=== PATIENT | male | born 1945 | race Caucasian/White ===

== ENCOUNTER 2016-12-31 12:03 | Inpatient (IN) ==
[2016-12-31 14:51] LABS: Basophils % 0.4 %; Eosinophils % 0.4 %; Hematocrit 50.1 % (37.5-50.1); Hemoglobin 16.4 g/dL (12.9-16.9); Immature Granulocytes % 0.4 % (0-4); Lymphocytes # 1.8 K/mcL (0.6-4.6); Lymphocytes % 16.9 %; Mean Corpuscular HGB Conc 32.7 g/dL (31.6-35.5); Mean Corpuscular Hemoglobin 29.7 pg (28.0-33.3); Mean Corpuscular Volume 90.8 fL (83.0-100.0); Mean Platelet Volume 9.7 fL (9.4-12.4); Monocytes % 9.9 %; Neutrophils # 7.5 K/mcL (1.6-8.9); Platelet Count 166 K/mcL (140-400); Red Blood Count 5.52 M/mcL (4.19-5.50); Red Cell Distribution Width 14.6 % (11.5-14.5)
[2016-12-31 14:58] LABS: Calcium 10.1 mg/dL (8.6-10.8); Potassium 4.4 mEq/L (3.5-4.5)
[2016-12-31] MEDS ORDERED: 0.9 % Sodium Chloride 500 ML IVC ONE (15:24)
[2016-12-31] MEDS ORDERED: *HR* HYDROmorphone (PF) 1 MG/ML SYRINGE IVP ONE (15:26)
--- NOTE | 2016-12-31 15:30 | Emergency Department Note ---
Disposition Clinical Impression: Calculus of kidney UTI (urinary tract infection) Qualifiers: Urinary tract infection type: site unspecified Hematuria presence: with hematuria Qualified Code(s): N39.0 - Urinary tract infection, site not specified Disposition: Admitted As Inpatient Condition: Good Referrals: Rey Quigley DO [Primary Care Provider] - General Adult HPI - General Chief complaint: ED Abdominal Pain Stated complaint: UTI/Kidney stone Time Seen by Provider: 12/31/16 15:07 Source: patient Limitations: no limitations Nursing Notes Reviewed: Yes Vital Signs Reviewed: Yes - History of Present Illness HPI Narrative: Patient was diagnosed over the weekend with a kidney stone as well as a UTI while he was out of town. He states the pain is getting worse. He is reporting blood in his urine. He does have a history of previous stone that had to be surgically removed. He reports right-sided flank pain that radiates around into his groin. He denies any nausea or vomiting. He denies any diarrhea. Pain Scale: 8 - Related Data Home Medications Medication Instructions Recorded Confirmed Aspirin Enteric Coated [Aspirin EC] 81 mg PO DAILY 12/31/16 12/31/16 Carbidopa/Levodopa [Sinemet 1 each PO TID 12/31/16 12/31/16 10] Cholecalciferol (D-3) [Vitamin D] 5,000 unit PO DAILY 12/31/16 12/31/16 Ciprofloxacin [Cipro] 500 mg PO BID 12/31/16 12/31/16 Doxycycline Monohydrate [Mondoxyne 50 mg PO DAILY 12/31/16 12/31/16 Nl] Escitalopram [Lexapro] 20 mg PO DAILY 12/31/16 12/31/16 Gabapentin [Neurontin] 800 mg PO HS 12/31/16 12/31/16 Losartan [Cozaar] 25 mg PO DAILY 12/31/16 12/31/16 Mycophenolate Mofetil [Cellcept] 1,000 mg PO BID 12/31/16 12/31/16 Olopatadine HCl [Pataday] 1 drop OP BID 12/31/16 12/31/16 Oxycodone HCl/Acetaminophen 1 each PO Q6H PRN 12/31/16 12/31/16 [Percocet 5-325 mg Tablet] Pravastatin Sodium [Pravachol] 20 mg PO HS 12/31/16 12/31/16 Pyridostigmine Br [Mestinon] 60 mg PO TID 12/31/16 12/31/16 Sitagliptin Phos/Metformin HCl 1 each PO BID 12/31/16 12/31/16 [Janumet 50-1,000 mg Tablet] Tamsulosin [Flomax] 0.4 mg PO DAILY 12/31/16 12/31/16 Trospium Chloride 20 mg PO BID 12/31/16 12/31/16 Allergies Allergy/AdvReac Type Severity Reaction Status Date / Time Amoxicillin AdvReac Itching Verified 12/31/16 12:14 Hydromorphone [From Dilaudid] AdvReac See Verified 12/31/16 12:14 Comments ketorolac [From Toradol] AdvReac See Verified 12/31/16 12:14 Comments Review of Systems: Patient reports subjective fevers. He is also reporting right-sided flank pain that radiates down into his groin. He states this began over the weekend. He was seen at an outlying facility for this. He is diagnosed with a kidney stone and urinary tract infection. He reports a decrease in frequency of his urination. He also reports a dark blood during urination. He denies any shortness of breath or chest pain. Denies any nausea vomiting or diarrhea. He denies any swelling to his extremities. All systems ED: reviewed and negative except as stated. Past Medical History - Past Medical History Medical history: Reports: arthritis, cancer, diabetes, hyperlipidemia, hypertension, kidney stones Psychiatric history: Reports: no psych history - Social History Smoking Status: Never smoker Smokeless Tobacco Status: No Alcohol use: Reports: none Drug use: Reports: none Physical Exam - General Limitations: no limitations General appearance: alert, in no apparent distress - Head Head exam: atraumatic, normocephalic, normal inspection - Eye Eye exam: Present: normal appearance, PERRL, EOMI. Absent: scleral icterus - ENT ENT exam: normal exam, normal oropharynx, mucous membranes moist - Neck Neck exam: Present: normal inspection, full ROM, trachea midline. Absent: tenderness, meningismus, lymphadenopathy - Chest Chest inspection: Present: normal inspection, symmetric chest wall rise. Absent : tenderness - Respiratory Respiratory exam: Present: normal lung sounds bilaterally. Absent: respiratory distress, wheezes - Cardiovascular Cardiovascular exam: Present: regular rate, normal rhythm, normal heart sounds - Abdominal Exam Abdominal exam: Present: soft, Non-Tender, normal bowel sounds - Extremities Exam Extremities exam: Present: normal inspection, full ROM, normal capillary refill. Absent: tenderness, pedal edema - Back Exam Back exam: Present: normal inspection, full ROM, CVA tenderness (R) - Neurological Exam Neurological exam: Present: alert, oriented X3 - Psychiatric Psychiatric exam: Present: normal affect, normal mood - Skin Skin exam: Present: warm, dry, intact, normal color. Absent: rash, cyanosis, diaphoresis, erythema Course Course Narrative: Obese male patient presenting to emergency department complaining of right flank pain. He states the pain started in his back and now radiating around to his abdomen. He was seen for this over the weekend at an outlying facility in [place]. He was diagnosed with a kidney stone and urinary tract infection. Placed on Cipro and Percocet. As well as Flomax. He states that his pain has increased. He is having subjective fevers at home. He does have a history of myasthenia gravis. He is expressing that he does frequently get urinary tract infections because his bladder does not empty completely however he states that now he is having a bloody discharge and that is not urinating as frequently as normal. Patient states he has also had a kidney stone previously. He states that he did have to have surgery to have this removed. On exam he does not appear in any distress resting in bed. His lung sounds are clear heart tones are normal and abdomen is soft and nontender on exam. He does have right CVA tenderness. He has no signs of edema to his extremities. Patient states that while he was in [place] he did receive 2 different doses of morphine and then ended up having to take Percocet as well for pain relief which is did not help. I discussed his possible Dilaudid allergy with him. He states that he was given amoxicillin Dilaudid as well as Toradol at the SAME time and developed some itching. He is agreeable to try just Dilaudid while he is here. We will also give him a small amount of fluid. We will recheck his urine and rescan his abdomen. - Reevaluation(s) Reevaluation #1: Patient ambulating throughout the room without assistance. He states he is still in some pain however he is refusing any extra pain medication at this time. He does have a obstructing stone in his right ureter. Patient has leukocyte esterase positive in his urine there are no nitrates. He does have a 5-15 count WBCs in his urine. This was called to us by lab. He has been on Cipro for several days. With the UTI and obstructing stone we will contact urology and admit him to the hospital for IV antibiotics. Patient is agreeable with this plan. Time: 17:41 - Consultations Consultation #1: Dr Rosenthal and is requesting that we admit the patient to the hospitalist and is agreeable to IV antibiotic use. He states that he will see the patient tomorrow. Time: 17:47 Vital Signs Temperature 97.8 F 12/31/16 12:07 Pulse Rate 111 12/31/16 12:07 Respiratory Rate 16 12/31/16 12:07 Blood Pressure 115/67 12/31/16 12:07 O2 Sat by Pulse Oximetry 92 12/31/16 12:07 Temperature 97.8 F 12/31/16 12:07 Pulse Rate 111 12/31/16 12:07 Respiratory Rate 16 12/31/16 18:52 Blood Pressure 138/80 12/31/16 18:52 O2 Sat by Pulse Oximetry 92 12/31/16 12:07 Oxygen Delivery Oxygen Delivery Room Air Medical Decision Making - Lab Data Result diagrams: 12/31/16 14:23 12/31/16 14:23 Lab Results 12/31/16 12/31/16 12/31/16 Range/Units 14:23 14:23 16:25 WBC 10.5 (4.3-11.1) K/mcL RBC 5.52 H (4.19-5.50) M/mcL Hgb 16.4 (12.9-16.9) g/dL Hct 50.1 (37.5-50.1) % MCV 90.8 (83.0-100.0) fL MCH 29.7 (28.0-33.3) pg MCHC 32.7 (31.6-35.5) g/dL RDW 14.6 H (11.5-14.5) % Plt Count 166 (140-400) K/mcL MPV 9.7 (9.4-12.4) fL Immature Gran % 0.4 (0-4) % Seg Neutrophils % 72.0 % Lymphocytes % 16.9 % Monocytes % 9.9 % Eosinophils % 0.4 % Basophils % 0.4 % Neutrophils # 7.5 (1.6-8.9) K/mcL Lymphocytes # 1.8 (0.6-4.6) K/mcL Monocytes # 1.0 (0.0-1.3) K/mcL Eosinophils # 0.0 (0.0-0.6) K/mcL Basophils # 0.0 (0.0-0.2) K/mcL Sodium 136 (136-145) mEq/L Potassium 4.4 (3.5-4.5) mEq/L Chloride 102 (98-109) mEq/L Carbon Dioxide 25 (19-29) mEq/L BUN 32 H (8-26) mg/dL Creatinine 1.62 H (0.72-1.25) mg/dL Est GFR ( Amer) 51 L (> 60) Est GFR (Non-Af Amer) 42 L (> 60) BUN/Creatinine Ratio 20 (6-26) Glucose 194 H (70-99) mg/dL Calculated Osmolality 294 (280-300) Calcium 10.1 (8.6-10.8) mg/dL Ur Specimen Adequacy See below A Urine Color Brown (Yellow) Urine Clarity Cloudy A (Clear) Urine pH 5.5 (5.0-8.0) pH Units Ur Specific [place] 1.025 (1.010-1.025) Urine Protein 30 H (Neg-Trace) mg/dL Urine Glucose (UA) Normal (Normal) mg/dL Urine Ketones Negative (Negative) mg/dL Urine Blood Large H (Negative) Urine Nitrite Negative (Negative) Urine Bilirubin Negative (Negative) Urine Urobilinogen Normal (Normal) mg/dL Ur Leukocyte Esterase Large H (Negative) Ur Culture Indicated? YES A (NO) Attestation Statement - Attestation Attestation: I, Oscar Ramirez, examined this patient and my medical decision-making was reviewed with the DISABILITY COUNSELOR/PA/Advanced Practice Nurse/Resident Physician. I agree with the documented findings, disposition and treatment plan as described except to the extent set forth below. 71-year-old male presents with concerns of right flank pain. Patient states he was diagnosed with a kidney stone and urinary tract infection within the past 2 weeks at a outside facility in [place]. Patient was given ciprofloxacin and Percocet for treatment at home. He states he has not improved and has progressively become worse. He reports significant amount of hematuria. Repeat CT of the abdomen and pelvis reveals a 4.4 mm stone in the right ureter. Urinalysis shows possible urinary tract infection consistent with infected stone. Patient will be admitted for IV antibiotics and further care and evaluation. Patient was comfortable with this plan. The resident spoke with the urologist who agreed with this plan. Patient will be admitted to the hospitalist.
[2016-12-31 16:50] LABS: Bilirubin,Urine Negative (Negative); Blood,Urine Large (Negative); Clarity,Urine Cloudy (Clear); Color,Urine Brown (Yellow); Glucose,Urine (UA) Normal (Normal); Ketones,Urine Negative (Negative); Leukocyte Esterase,Urine Large (Negative); Nitrite,Urine Negative (Negative); PH,Urine 5.5 pH Units (5.0-8.0); Protein,Urine 30 mg/dL (Neg-Trace); Specific Gravity,Urine 1.025 (1.010-1.025); Urobilinogen,Urine Normal (Normal)
--- NOTE | 2016-12-31 18:46 | Urology - Consult Note ---
Date of Encounter: 12/31/16 Time of Encounter: 18:44 - Assessment and Plan (1) Calculus of kidney Current Visit: Yes Status: Acute Assessment and plan: 71-year-old man presents with a history of right flank pain. His CT scan was reviewed which showed a 4 mm proximal right ureteral stone. He will be admitted for pain control. I recommend proceeding with a right ureteroscopy, laser lithotripsy, and stent placement. He was informed of the risks of the procedure including but not limited to bleeding, infection, injury to other structures, need for further procedures, stent irritation, incomplete fragmentation, ureteral perforation, need for nephrostomy tube, need for open repair, risks unforeseen, and the risk of anesthesia. He is willing to proceed. Urology CN:HPI Consult date: 12/31/16 Reason for consult Urology: Other (Right flank pain) Requesting physician: Marley Ibrahim History of present illness: 71-year-old man presents with a history of right flank pain. He was seen at an outside hospital and was diagnosed with a right proximal ureteral stone. He was given pain medication and wished to try to pass a stone. His pain got worse. He presented to [facility]. A repeat CT scan showed a 4 mm stone within the right proximal ureter. There is evidence of hydronephrosis. The pain is sharp and radiates to his groin. The medication has helped, but the oral pain medication was not adequate. He has a history of nephrolithiasis. He has previously had shockwave lithotripsy. Past Med Surg Social Fam HX - Past Medical History Medical history: arthritis, cancer, diabetes, hyperlipidemia, hypertension, kidney stones Psychiatric history: no psych history - Social History Smoking Status: Never smoker Smokeless Tobacco Status: No Alcohol use: none Drug use: none Medications and Allergies Aspirin Enteric Coated [Aspirin EC] 81 mg PO DAILY 12/31/16 [History] Carbidopa/Levodopa 10/100 [Sinemet 10/100] 1 each PO TID 12/31/16 [History] Cholecalciferol (D-3) [Vitamin D] 5,000 unit PO DAILY 12/31/16 [History] Ciprofloxacin [Cipro] 500 mg PO BID 12/31/16 [History] Doxycycline Monohydrate [Mondoxyne Nl] 50 mg PO DAILY 12/31/16 [History] Escitalopram [Lexapro] 20 mg PO DAILY 12/31/16 [History] Gabapentin [Neurontin] 800 mg PO HS 12/31/16 [History] Losartan [Cozaar] 25 mg PO DAILY 12/31/16 [History] Mycophenolate Mofetil [Cellcept] 1,000 mg PO BID 12/31/16 [History] Olopatadine HCl [Pataday] 1 drop OP BID 12/31/16 [History] Oxycodone HCl/Acetaminophen [Percocet 5-325 mg Tablet] 1 each PO Q6H PRN [History] Pravastatin Sodium [Pravachol] 20 mg PO HS 12/31/16 [History] Pyridostigmine Br [Mestinon] 60 mg PO TID 12/31/16 [History] Sitagliptin Phos/Metformin HCl [Janumet 50-1,000 mg Tablet] 1 each PO BID [History] Tamsulosin [Flomax] 0.4 mg PO DAILY 12/31/16 [History] Trospium Chloride 20 mg PO BID 12/31/16 [History] Allergies Amoxicillin Adverse Reaction (Verified 12/31/16 12:14) Itching Hydromorphone [From Dilaudid] Adverse Reaction (Verified 12/31/16 12:14) See Comments Itching/Shorness of breath ketorolac [From Toradol] Adverse Reaction (Verified 12/31/16 12:14) See Comments itching/ shortness of breath Review of Systems - Constitutional no chills, no fever(s) - EENT Nose, mouth and throat: no dizziness - Cardiovascular no chest pain - Respiratory no dyspnea - Gastrointestinal no nausea, no vomiting - Genitourinary flank pain, no hematuria - Musculoskeletal no back pain - Integumentary no erythema, no rash - Neurological no weakness - Psychiatric no suicidal ideation - Hematologic/Lymphatic no easy bleeding - Allergic/Immunologic no wheezing Exam Initial Vital Signs Temp Pulse Resp BP Pulse Ox 97.8 F 111 16 115/67 92 12/31/16 12:07 12/31/16 12:07 12/31/16 12:07 12/31/16 12:07 12/31/16 12:07 - General physical appearance Present: well developed, well nourished, no distress - Eyes Absent: icteric - ENT Present: normal nares - Neck Present: trachea midline - Respiratory Present: normal respiratory effort - Cardiovascular Cardiovascular exam IM: RRR - Abdomen Abdomen: Present: soft Urology Results - Labs 12/31/16 14:23 12/31/16 14:23 Abnormal lab results RBC 5.52 M/mcL (4.19-5.50) H 12/31/16 14:23 RDW 14.6 % (11.5-14.5) H 12/31/16 14:23 BUN 32 mg/dL (8-26) H 12/31/16 14:23 Creatinine 1.62 mg/dL (0.72-1.25) H 12/31/16 14:23 Est GFR ( Amer) 51 (> 60) L 12/31/16 14:23 Est GFR (Non-Af Amer) 42 (> 60) L 12/31/16 14:23 Glucose 194 mg/dL (70-99) H 12/31/16 14:23 Ur Specimen Adequacy See below A 12/31/16 16:25 Urine Clarity Cloudy (Clear) A 12/31/16 16:25 Urine Protein 30 mg/dL (Neg-Trace) H 12/31/16 16:25 Urine Blood Large (Negative) H 12/31/16 16:25 Ur Leukocyte Esterase Large (Negative) H 12/31/16 16:25 Ur Culture Indicated? YES (NO) A 12/31/16 16:25 All other labs normal. - Imaging CT scan - abdomen: report reviewed, image reviewed CT scan - pelvis: report reviewed, image reviewed Consult Discharge Plan - Plan Referrals: Rey Quigley DO [Primary Care Provider] -
[2016-12-31] MEDS ORDERED: Ondansetron 4 MG/2 ML VIAL IVP PRN (19:14)
[2016-12-31] MEDS ORDERED: Acetaminophen 325 MG TABLET PO PRN (19:14)
[2016-12-31] MEDS ORDERED: Naloxone 0.4 MG/ML INJ IVP PRN (19:14)
[2016-12-31] MEDS ORDERED: *HR* Dextrose 50 % in Water (Syg) 50 ML SYRINGE IVP PRN (19:19)
[2016-12-31] MEDS ORDERED: Dextrose Gel 15 GM PO PRN ×2 (19:19)
[2016-12-31] MEDS ORDERED: D5% in Water 1,000 ML IVC PRN (19:19)
--- NOTE | 2016-12-31 19:44 | Anesthesia Evaluation PreOp ---
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 HX Other Medical History: Renal (Stones), Diabetes Type II Anesthesia History: Past Anesthesia ( GB, Uppp, Skin CA,), Problems (PONV 15-20 years ago with GB, none after UPPP (10 years ago) -no scop patch at that time) Alcohol Use: none Drug use: none Medications and Allergies Aspirin Enteric Coated [Aspirin EC] 81 mg PO DAILY 12/31/16 [History] Carbidopa/Levodopa [Sinemet ] 1 each PO TID 12/31/16 [History] Cholecalciferol (D-3) [Vitamin D] 5,000 unit PO DAILY 12/31/16 [History] Ciprofloxacin [Cipro] 500 mg PO BID 12/31/16 [History] Doxycycline Monohydrate [Mondoxyne Nl] 50 mg PO DAILY 12/31/16 [History] Escitalopram [Lexapro] 20 mg PO DAILY 12/31/16 [History] Gabapentin [Neurontin] 800 mg PO HS 12/31/16 [History] Losartan [Cozaar] 25 mg PO DAILY 12/31/16 [History] Mycophenolate Mofetil [Cellcept] 1,000 mg PO BID 12/31/16 [History] Olopatadine HCl [Pataday] 1 drop OP BID 12/31/16 [History] Oxycodone HCl/Acetaminophen [Percocet 5-325 mg Tablet] 1 each PO Q6H PRN [History] Pravastatin Sodium [Pravachol] 20 mg PO HS 12/31/16 [History] Pyridostigmine Br [Mestinon] 60 mg PO TID 12/31/16 [History] Sitagliptin Phos/Metformin HCl [Janumet 50-1,000 mg Tablet] 1 each PO BID [History] Tamsulosin [Flomax] 0.4 mg PO DAILY 12/31/16 [History] Trospium Chloride 20 mg PO BID 12/31/16 [History] Allergies Amoxicillin Adverse Reaction (Verified 12/31/16 12:14) Itching Hydromorphone [From Dilaudid] Adverse Reaction (Verified 12/31/16 12:14) See Comments Itching/Shorness of breath ketorolac [From Toradol] Adverse Reaction (Verified 12/31/16 12:14) See Comments itching/ shortness of breath - Meds/Allergy Pre-op Review Medications Reviewed: Yes Allergies Reviewed: Yes Beta Blockers on Current Med List: No Anesthesia Results - Labs 12/31/16 14:23 12/31/16 14:23 Anesthesia Exam O2 Sat Height 1.85 m Height 1.85 m Weight 130.635 kg Weight 130.635 kg O2 Sat by Pulse Oximetry 96 O2 Sat by Pulse Oximetry 92 Vital Signs Temp Pulse Resp BP Pulse Ox 97.8 F 111 16 115/67 92 12/31/16 12:07 12/31/16 12:07 12/31/16 12:07 12/31/16 12:07 12/31/16 12:07 Height: 6'1'' Weight: 288# NPO (# of Hours): > 8 hrs Pain Scale: 0 Pain Scale Used: Numeric (1 - 10) - HEENT Pupil (Motor): Pupils equal, EOMI Mallampati: II Teeth: Missing Denture Type: Upper: Complete, Lower: Partial Oral Opening: Greater than 3 - HYSTER MACHINE OPERATOR LOC: Oriented HYSTER MACHINE OPERATOR Motor: Normal RUE, Normal LUE, Normal RLE, Normal LLE, Normal Face HYSTER MACHINE OPERATOR Sensory: Normal: RUE, LUE, RLE, LLE, Face - Cardiac Rhythm: Regular Murmur: None JVD: No Carotid Bruit: No - Pulmonary Breath Sounds: bilateral Clear Respiratory Effort: Symmetrical Anesthesia Assess/Plan ASA Score: 3 Modified Isamar Scale for Level of Consciousness: Cooperative, oriented, and tranquil Anesthetic Plan: General Autologous Blood: Yes Monitoring Plan: Standard Monitors Recovery Plan: PACU
--- NOTE | 2016-12-31 20:12 | Internal Med History&Physical ---
Date of Encounter: 12/31/16 Time of Encounter: 19:30 Assessment and Plan (1) Calculus of kidney Current visit: Yes Status: Acute Symptoms of right flank pain. CT scan reveals a 4 mm proximal right ureteral stone Urology consultation - planning for right ureteroscopy, laser lithotripsy and stent placement Continue IV fluids and IV pain medication when necessary. (2) UTI (urinary tract infection) Current visit: Yes Status: Acute Likely secondary to renal calculus. Empiric Rocephin IV. Urine cultures pending. Qualifiers: Urinary tract infection type: acute cystitis Hematuria presence: with hematuria Qualified Code(s): N30.01 - Acute cystitis with hematuria (3) Essential hypertension Current visit: Yes Status: Acute Controlled, continue home meds, monitor. (4) Type 2 diabetes mellitus Current visit: Yes Status: Acute Type 2 diabetes with hyperglycemia, non-insulin dependent Continue sliding scale insulin, glucose checks Qualifiers: Diabetes mellitus complication status: without complication Diabetes mellitus continuous churn buttermaker insulin use: without nursing home use Qualified Code(s): E11.9 - Type 2 diabetes mellitus without complications (5) Hyperlipidemia Current visit: Yes Status: Acute Continue pravastatin Qualifiers: Hyperlipidemia type: mixed hyperlipidemia Qualified Code(s): E78.2 - Mixed hyperlipidemia (6) Osteoarthritis Current visit: Yes Status: Acute Chronic, continue home meds Qualifiers: Osteoarthritis location: multiple joints Qualified Code(s): M15.0 - Primary generalized (osteo)arthritis (7) Parkinson disease Current visit: Yes Status: Acute Parkinson disease like symptoms, continue home medications of Sinemet and Mestinon Needs outpatient follow-up (8) DVT prophylaxis Current visit: Yes Status: Acute Bilateral SCDs, hold anticoagulation due to urologic procedure Internal Medicine - H&P: HPI Chief complaint: Right flank pain Admitted From: Emergency Dept History of present illness: Mr. Marin is a 71 year old male with past medical history of diabetes, hypertension, hyperlipidemia, renal stones, Parkinson disease like symptoms and osteoarthritis. He presents to the ED with complaints of right flank pain. Patient states symptoms started initially about 3 days ago. Symptoms have gradually worsened. Patient initially went to a urgent care and was told that he had kidney stones. Patient comes in today for worsening pain. States it starts on the right side of the back. It is radiating anteriorly to the suprapubic region and groin. Rates the pain about 6 out of 10. It is sharp and almost constant. Pain is improved with IV pain medication, no aggravating factors. Patient does have mild associated nausea. No other associated symptoms. Patient denies chest pain denies shortness of breath denies lightheadedness or dizziness. On examination patient is awake and alert. He is able to provide history. No family members at bedside. Patient has been explained about condition and plan of care. He understood and agreed. No unanswered questions. Urology has evaluated the patient in the ED. Patient is scheduled for ureteroscopy and laser lithotripsy. Patient agrees for procedure. Past Med Surg Social Fam HX - Past Medical History Medical history: arthritis, cancer (melanoma), diabetes, hyperlipidemia, hypertension, kidney stones, other (parkinson disease like symptoms) Psychiatric history: no psych history - Past Surgical History Surgical History: cancer surgery (melanoma excision), cholecystectomy, knee replacement, orthopedic, other (left foot fracture repair), ureteral stent ([facility] ), other (adenoidectomy, uvular surgery) - Social History Smoking Status: Never smoker Smokeless Tobacco Status: No Alcohol use: none Drug use: none - Family History Father Hx Family Endocrine Disorder: Yes Mother Hx Family Cardiac Disorders: Yes Internal Medicine - H&P: Meds Aspirin Enteric Coated [Aspirin EC] 81 mg PO DAILY 12/31/16 [History] Carbidopa/Levodopa 10/100 [Sinemet 10/100] 1 each PO TID 12/31/16 [History] Cholecalciferol (D-3) [Vitamin D] 5,000 unit PO DAILY 12/31/16 [History] Ciprofloxacin [Cipro] 500 mg PO BID 12/31/16 [History] Doxycycline Monohydrate [Mondoxyne Nl] 50 mg PO DAILY 12/31/16 [History] Escitalopram [Lexapro] 20 mg PO DAILY 12/31/16 [History] Gabapentin [Neurontin] 800 mg PO HS 12/31/16 [History] Losartan [Cozaar] 25 mg PO DAILY 12/31/16 [History] Mycophenolate Mofetil [Cellcept] 1,000 mg PO BID 12/31/16 [History] Olopatadine HCl [Pataday] 1 drop OP BID 12/31/16 [History] Oxycodone HCl/Acetaminophen [Percocet 5-325 mg Tablet] 1 each PO Q6H PRN [History] Pravastatin Sodium [Pravachol] 20 mg PO HS 12/31/16 [History] Pyridostigmine Br [Mestinon] 60 mg PO TID 12/31/16 [History] Sitagliptin Phos/Metformin HCl [Janumet 50-1,000 mg Tablet] 1 each PO BID [History] Tamsulosin [Flomax] 0.4 mg PO DAILY 12/31/16 [History] Trospium Chloride 20 mg PO BID 12/31/16 [History] Allergies Amoxicillin Adverse Reaction (Verified 12/31/16 12:14) Itching Hydromorphone [From Dilaudid] Adverse Reaction (Verified 12/31/16 12:14) See Comments Itching/Shorness of breath ketorolac [From Toradol] Adverse Reaction (Verified 12/31/16 12:14) See Comments itching/ shortness of breath All Systems PM: A 10-system review of systems was performed and is negative for pertinent findings except as documented above in the HPI. - Constitutional Constitutional: no fatigue, no fever(s), no weakness - Cardiovascular Cardiovascular ROS IM: no chest pain, no diaphoresis, no dyspnea, no lightheadedness, no orthopnea - Respiratory Respiratory: no cough, no dyspnea, no chest congestion - Gastrointestinal Gastrointestinal: nausea, no abdominal pain, no bloating, no diarrhea - Genitourinary Genitourinary ROS male: dysuria, flank pain - Neurological Neurological ROS: no abnormal speech, no confusion, no focal weakness, no weakness - Constitutional Vitals: Temp Pulse Resp BP Pulse Ox 99.2 F 102 14 120/76 96 12/31/16 19:06 12/31/16 19:06 12/31/16 19:06 12/31/16 19:06 12/31/16 19:06 General appearance: Present: A&O X 3, pleasant, no acute distress, obese, answers questions appropriately - Head Head exam: Present: atraumatic - ENT ENT exam: Present: mucous membranes moist - Neck Neck exam general surgery: Present: supple - Respiratory Respiratory exam: Present: CTAB. Absent: rhonchi, wheezes - Cardiovascular Cardiovascular exam: Present: RRR, +S1, +S2 - GI/Abdominal GI/Abdominal exam: Present: distended (obese), soft, tenderness (right flank and right back). Absent: guarding, mass - Extremities Exam Extremities exam: Present: radial pulses palpable and symetrical. Absent: cyanotic, pedal edema - Neurological Exam Neurological exam: Present: alert, oriented X3, no focal deficits Internal Med - H&P Results - Labs CBC & Chem 7: 12/31/16 14:23 12/31/16 14:23
[2016-12-31] MEDS: 0.9 % Sodium Chloride 1,000 ML IVC SCH (20:29)
[2016-12-31] MEDS: *HR* Morphine 2 MG/ML SYRINGE IVP SCH (20:39)
[2016-12-31] MEDS ORDERED: (Olopatadine Hcl [Pataday] 1 DROP) OP SCH (21:00)
[2016-12-31] MEDS ORDERED: Pyridostigmine Br 60 MG TABLET PO SCH (21:00)
[2017-01-01] MEDS: *HR* Morphine 2 MG/ML SYRINGE IVP SCH ×2 (00:21→03:55)
[2017-01-01] MEDS: Insulin LISPRO 300 UNITS/3 ML VIAL SQ SCH ×2 (00:44→06:01)
[2017-01-01 05:14] LABS: Hematocrit 47.1 % (37.5-50.1); Hemoglobin 15.6 g/dL (12.9-16.9); Mean Corpuscular HGB Conc 33.1 g/dL (31.6-35.5); Mean Corpuscular Hemoglobin 30.1 pg (28.0-33.3); Mean Corpuscular Volume 90.9 fL (83.0-100.0); Mean Platelet Volume 9.7 fL (9.4-12.4); Platelet Count 164 K/mcL (140-400); Red Blood Count 5.18 M/mcL (4.19-5.50); Red Cell Distribution Width 14.6 % (11.5-14.5)
[2017-01-01 05:35] LABS: Calcium 9.2 mg/dL (8.6-10.8); Potassium 4.8 mEq/L (3.5-4.5)
[2017-01-01] MEDS ORDERED: Famotidine 20 MG/2 ML VIAL IVP SCH ×2 (06:00→18:00)
[2017-01-01] MEDS: 0.9 % Sodium Chloride 1,000 ML IVC SCH (06:05)
--- NOTE | 2017-01-01 07:36 | Urology Progress Note ---
Date of Encounter: 01/01/17 Time of Encounter: 07:35 - Assessment and Plan (1) Calculus of kidney Current Visit: Yes Status: Acute Assessment and plan: 71 year old man with right proximal ureteral stone. Plan for right ureteroscopy, laser lithotripsy, and stent placement. All risks were informed. He is willing to proceed. Progress Note Narrative: Doing well this morning, but did have pain overnight. He wishes to have his stone treated today. Objective Initial Vital Signs Temp Pulse Resp BP Pulse Ox 97.8 F 111 16 115/67 92 12/31/16 12:07 12/31/16 12:07 12/31/16 12:07 12/31/16 12:07 12/31/16 12:07 - General physical appearance Present: well developed, well nourished, no distress - Respiratory Present: normal respiratory effort - Abdomen Present: soft - Labs 01/01/17 04:54 01/01/17 04:54 Diabetes panel 01/01/17 Range/Units 04:54 Sodium 137 (136-145) mEq/L Potassium 4.8 H (3.5-4.5) mEq/L Chloride 104 (98-109) mEq/L Carbon Dioxide 24 (19-29) mEq/L BUN 29 H (8-26) mg/dL Creatinine 1.43 H (0.72-1.25) mg/dL Glucose 152 H (70-99) mg/dL Calcium 9.2 (8.6-10.8) mg/dL Calcium panel 01/01/17 Range/Units 04:54 Calcium 9.2 (8.6-10.8) mg/dL Pituitary panel 01/01/17 Range/Units 04:54 Sodium 137 (136-145) mEq/L Potassium 4.8 H (3.5-4.5) mEq/L Chloride 104 (98-109) mEq/L Carbon Dioxide 24 (19-29) mEq/L BUN 29 H (8-26) mg/dL Creatinine 1.43 H (0.72-1.25) mg/dL Glucose 152 H (70-99) mg/dL Calcium 9.2 (8.6-10.8) mg/dL Adrenal panel 01/01/17 Range/Units 04:54 Sodium 137 (136-145) mEq/L Potassium 4.8 H (3.5-4.5) mEq/L Chloride 104 (98-109) mEq/L Carbon Dioxide 24 (19-29) mEq/L BUN 29 H (8-26) mg/dL Creatinine 1.43 H (0.72-1.25) mg/dL Glucose 152 H (70-99) mg/dL Calcium 9.2 (8.6-10.8) mg/dL Consult Discharge Plan - Plan Referrals: Rey Quigley DO [Primary Care Provider] - Wild Rosenthal MD [Partnered Physician] -
[2017-01-01] MEDS ORDERED: Famotidine 20 MG/2 ML VIAL ONE (07:54)
[2017-01-01] MEDS ORDERED: Metoclopramide 10 MG/2 ML VIAL ONE (07:54)
[2017-01-01] MEDS ORDERED: *HR* Propofol 200 MG/20 ML VIAL IVP ONE (08:28)
[2017-01-01] MEDS ORDERED: *HR* FentaNYL (PF) 100 MCG/2 ML VIAL ONE (08:28)
[2017-01-01] MEDS ORDERED: *HR* Midazolam HCl 2 MG/2 ML VIAL ONE (08:28)
[2017-01-01] MEDS ORDERED: Lacri-Lube 3.5 GM TUBE ONE (08:36)
[2017-01-01] MEDS ORDERED: *HR* Phenylephrine 10 MG/ML VIAL ONE (08:36)
[2017-01-01] MEDS ORDERED: Cholecalciferol (D-3) 1,000 UNIT TABLET PO SCH (09:00)
[2017-01-01] MEDS ORDERED: *HR* Morphine 2 MG/ML SYRINGE IVP PRN ×2 (09:08→12:00)
[2017-01-01] MEDS ORDERED: Ondansetron 4 MG/2 ML VIAL IVP ONE (09:08)
[2017-01-01] MEDS ORDERED: *HR* Labetalol 20 MG/4 ML SYRINGE IVP PRN (09:08)
--- NOTE | 2017-01-01 09:14 | Operative Note ---
Date of procedure: 01/01/17 Pre-op diagnosis: Right ureteral stone Post-op diagnosis: same Procedure: Right ureteroscopy, laser lithotripsy, basket stone extraction, and stent placement. Implants: 6 [place] x 26cm JJ stent. Complications: none. Anesthesia: MARIA ESTHER Surgeon: Wild Rosenthal Estimated blood loss (cc): 1 Specimen: right ureteral stone Condition: stable Disposition: PACU Procedure in Detail: Indications: Mr. Marin is a 71-year-old male who has a history of nephrolithiasis. He had a CT scan which showed a 4 mm right proximal ureteral stone. He elected to undergo a right ureteroscopy, laser lithotripsy, and basket stone extraction with stent placement. He was aware of the risks of the procedure including but not limited to bleeding, infection, injury to other structures, need for further procedures, stent irritation, need for nephrostomy tube, need for open repair, risks otherwise unforeseen, and the risk of anesthesia. He is willing to proceed. Procedure in Detail: After informed consent was obtained the patient was brought back to the operating room and placed in supine position. A time out was performed. General anesthesia was administered and an LMA was placed. He was then placed in the lithotomy position. He was prepped and draped in the usual sterile fashion. His urethral meatus was narrow. I advanced the semirigid ureteroscope. 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 There is prior evidence of a TUR defect. There was no evidence of bladder tumors. The ureteral orifices were in the normal orthotopic position. The sensor wire was placed in the right ureteral orifice. The wire was then brought up into the kidney under fluoroscopic guidance. I then passed the 8/10 [place] ureteral dilator. The semirigid ureteroscope was advanced alongside the wire but it was difficult to visualize the stone. A ZIP wire was then placed and the scope was removed. The flexible ureteroscope was then advanced into the proximal ureter. The stone was visualized. It was then broken up using the 200 micron laser fiber. The stone fragments were then basket extracted. Once all the stone fragments were extracted and then elected to place a stent. I first attempted to place a 6 [place] by 26 cm double-J stent. This did not move easily through the ureter. I then utilized a 4.8 [place] by 26 cm stent, and this didn't pass easily. The bladder was then drained with a 14 [place] Parada catheter. I then advanced the 8/10 [place] ureteral dilator. The 8 [place] portion was removed. I then advanced a 6 [place] by 26 cm double-J stent through the 10 [place] dilator into the kidney. A good curl the stent was seen in the kidney. The dilator is removed. The wire was removed and a good curl seen in the bladder. The dangle string was left intact and secured to the penis using Steri-Strips. The patient was then awakened from general anesthesia and brought to recovery room in good condition. All sponge, needle, and instrument counts were correct.
--- NOTE | 2017-01-01 09:21 | Anesthesia Evaluation Post Op ---
Date of Encounter: 01/01/17 Time of Encounter: 09:21 - Vital Signs Vital Signs: vss - Lungs Lungs: Clear Ascult./Percussion - Airway Airway: Non-obstructed - Cardiovascular Baseline Rhythm - Mental Status Mental Status: Asleep with brisk response to light stimulation - Pain Pain Scale used: Sherif (Faces) (tolerable) - Nausea Vomiting Nausea Vomiting: Not Present - Hydration Hydration: Ice chips - Discharge PostOp Status: Transfer Patient to floor
[2017-01-01] MEDS ORDERED: 0.9 % Sodium Chloride 1,000 ML IVC SCH (09:54)
[2017-01-01] MEDS ORDERED: Ondansetron 4 MG/2 ML VIAL IVP PRN (09:54)
[2017-01-01] MEDS ORDERED: *HR* Dextrose 50 % in Water (Syg) 50 ML SYRINGE IVP PRN (09:54)
[2017-01-01] MEDS ORDERED: Naloxone 0.4 MG/ML INJ IVP PRN (09:54)
[2017-01-01] MEDS ORDERED: D5% in Water 1,000 ML IVC PRN (09:54)
[2017-01-01] MEDS ORDERED: Acetaminophen 325 MG TABLET PO PRN (09:54)
[2017-01-01] MEDS ORDERED: Dextrose Gel 15 GM PO PRN ×2 (09:54)
[2017-01-01 11:22] VITALS: BP 127/78
[2017-01-01] MEDS ORDERED: Insulin LISPRO 300 UNITS/3 ML VIAL SQ SCH (12:00)
--- NOTE | 2017-01-01 13:45 | Discharge Summary ---
Date of Encounter: 01/01/17 Time of Encounter: 13:40 - Discharge Diagnosis (1) Calculus of kidney Priority: Primary Status: Acute (2) UTI (urinary tract infection) Priority: Secondary Status: Acute Qualifiers: Urinary tract infection type: acute cystitis Hematuria presence: with hematuria Qualified Code(s): N30.01 - Acute cystitis with hematuria (3) Essential hypertension Priority: Secondary Status: Acute (4) Type 2 diabetes mellitus Priority: Secondary Status: Acute Qualifiers: Diabetes mellitus complication status: without complication Diabetes mellitus jail insulin use: without jail use Qualified Code(s): E11.9 - Type 2 diabetes mellitus without complications (5) DVT prophylaxis Priority: Secondary Status: Acute - Discharge Medications Prescriptions: Cefuroxime PO [Ceftin] 500 mg PO Q12HR #15 tablet Home Medications: Aspirin Enteric Coated [Aspirin EC] 81 mg PO DAILY 12/31/16 [History] Carbidopa/Levodopa 10/100 [Sinemet 10/100] 1 each PO TID 12/31/16 [History] Cholecalciferol (D-3) [Vitamin D] 5,000 unit PO DAILY 12/31/16 [History] Ciprofloxacin [Cipro] 500 mg PO BID 12/31/16 [History] Doxycycline Monohydrate [Mondoxyne Nl] 50 mg PO DAILY 12/31/16 [History] Escitalopram [Lexapro] 20 mg PO DAILY 12/31/16 [History] Gabapentin [Neurontin] 800 mg PO HS 12/31/16 [History] Losartan [Cozaar] 25 mg PO DAILY 12/31/16 [History] Mycophenolate Mofetil [Cellcept] 1,000 mg PO BID 12/31/16 [History] Olopatadine HCl [Pataday] 1 drop OP BID 12/31/16 [History] Oxycodone HCl/Acetaminophen [Percocet 5-325 mg Tablet] 1 each PO Q6H PRN [History] Pravastatin Sodium [Pravachol] 20 mg PO HS 12/31/16 [History] Pyridostigmine Br [Mestinon] 60 mg PO TID 12/31/16 [History] Sitagliptin Phos/Metformin HCl [Janumet 50-1,000 mg Tablet] 1 each PO BID [History] Tamsulosin [Flomax] 0.4 mg PO DAILY 12/31/16 [History] Trospium Chloride 20 mg PO BID 12/31/16 [History] Acetaminophen [Tylenol] 650 mg PO Q6HR PRN #0 tablet 01/01/17 [Rx] Cefuroxime PO [Ceftin] 500 mg PO Q12HR #15 tablet 01/01/17 [Rx] Allergies/Adverse Reactions: Allergies Amoxicillin Adverse Reaction (Verified 12/31/16 12:14) Itching Hydromorphone [From Dilaudid] Adverse Reaction (Verified 12/31/16 12:14) See Comments Itching/Shorness of breath ketorolac [From Toradol] Adverse Reaction (Verified 12/31/16 12:14) See Comments itching/ shortness of breath Date of admission: 12/31/16 19:14 Primary care physician: Rey Quigley DO Discharging clinician: Storm Espinal Anticipated date of discharge: 01/01/17 - Patient Status Disposition: Home, Self-Care Condition: Good Overall status at discharge: patient is back to baseline - Discharge Instructions Follow Up With: Rey Quigley DO [Primary Care Provider] - Wild Rosenthal MD [Partnered Physician] - - Diet and Activity Activity: resume usual activities as tolerated Diet: advance to your usual diet Interval History: Garcia Palomares is a 72-year-old male admitted for left ureteric stone. Dr. Rosenthal has performed a ureteroscope followed by laser lithotripsy and stent placement. Patient will be seen in office next week. As she is a stable she can eat and if she tolerates diet and agreeable with urology she can be discharged home Hospital course: Mr. Marin is a 71 year old male - Time Spent with Patient Total time spent providing and/or coordinating discharge services: Greater than 30 minutes - Constitutional Vitals: Temp Pulse Resp BP Pulse Ox 98.5 F 93 12 127/78 96 01/01/17 12:20 01/01/17 12:20 01/01/17 12:20 01/01/17 12:20 01/01/17 11:21 General appearance: Present: A&O X 3, pleasant, no acute distress, obese, answers questions appropriately - Head Head exam: Present: atraumatic, normocephalic - Eye Eye exam: Present: PERRL, conjuntiva pink, sclera anicteric Pupils: Present: PERRL - Neck Neck exam general surgery: Present: supple, trachea midline. Absent: lymphadenopathy - Respiratory Respiratory exam: Present: CTAB. Absent: accessory muscle use, rales, rhonchi, wheezes - Cardiovascular Cardiovascular exam: Present: RRR, +S1, +S2. Absent: diastolic murmur, gallop, rubs, systolic murmur - GI/Abdominal GI/Abdominal exam: Present: normal bowel sounds, soft, no peritoneal signs. Absent: distended, tenderness - Extremities Exam Extremities exam: Present: warm, radial pulses palpable and symetrical. Absent : calf tenderness, cyanotic, pedal edema - Neurological Exam Neurological exam: Present: CN II-XII intact, oriented X3, no focal deficits. Absent: pronater drift, facial droop, speech deficit - Skin Skin exam: Present: dry, intact - VTE Documentation of Mechanical Device: Intermittent pneumatic compression device
[2017-01-01] MEDS ORDERED: Pyridostigmine Br 60 MG TABLET PO SCH (15:00)
--- NOTE | 2017-01-01 17:48 | Electrocardiograph Report ---
[place] [id number] Test Date: 2017-01-01 Pat Name: Wilbur Marin Department: 115 Room: 3A Gender: M Emissions Testing Technician: CRISTINE : 1945 Requested By: Storm Espinal Order Number: [id number] Reading MD: Oscar Valles Measurements Intervals [place] Rate: 92 P: 24 CT: 135 QRS: 13 QRSD: 137 T: 26 QT: 362 QTc: 412 Interpretive Statements SINUS RHYTHM RIGHT BUNDLE BRANCH BLOCK Electronically Signed On 01-01-2017 17:46:17 EDT by Oscar Valles
[2017-01-01] MEDS ORDERED: (Olopatadine Hcl [Pataday] 1 DROP) OP SCH (21:00)
[2017-01-02] MEDS ORDERED: Cholecalciferol (D-3) 1,000 UNIT TABLET PO SCH (09:00)
== END 2017-01-01 14:11 | disposition home or self-care (01) | DRG 669 ==
LOC: 3ANU 12:03 → EMEROO 12:03 → 3ANU 18:54
PROVIDERS: ADMIT Registered Nurse; ATTEND Internal Medicine

== ENCOUNTER 2019-03-17 16:04 | Inpatient (IN) ==
--- NOTE | 2019-03-17 16:30 | Emergency Department Note ---
Disposition Clinical Impression: Atrial flutter Qualifiers: Atrial flutter type: unspecified Qualified Code(s): I48.92 - Unspecified atrial flutter Disposition: Admitted As Inpatient Condition: Fair Time of Disposition: 18:32 General Adult HPI - General Chief complaint: ED Chest Pain Stated complaint: Abnormal Ekg From [facility] Time Seen by Provider: 03/17/19 16:26 Source: patient, family Limitations: no limitations Nursing Notes Reviewed: Yes Vital Signs Reviewed: Yes - History of Present Illness Pain Scale: 0 - Related Data Home Medications Medication Instructions Recorded Confirmed Aspirin Enteric Coated [Aspirin EC] 81 mg PO DAILY 12/31/16 04/22/17 Gabapentin [Neurontin] 800 mg PO HS 12/31/16 04/22/17 Sitagliptin Phos/Metformin HCl 1 each PO BID 12/31/16 04/22/17 [Janumet 50-1,000 mg Tablet] Allergies Allergy/AdvReac Type Severity Reaction Status Date / Time Amoxicillin AdvReac Itching Verified 04/22/17 07:36 hydromorphone [From Dilaudid] AdvReac See Verified 04/22/17 07:36 Comments ketorolac [From Toradol] AdvReac See Verified 04/22/17 07:36 Comments Past Medical History - Past Medical History Medical history: Reports: arthritis, cancer, diabetes, hyperlipidemia, kidney stones, other Surgical history: Reports: cancer surgery, cholecystectomy, knee replacement, orthopedic, other, other Psychiatric history: Reports: no psych history - Social History Smoking Status: Never smoker Smokeless Tobacco Status: No Alcohol use: Reports: none Drug use: Reports: none Physical Exam - General Limitations: no limitations Course Vital Signs Temperature 98.6 F 03/17/19 16:08 Pulse Rate 145 03/17/19 16:08 Respiratory Rate 16 03/17/19 16:08 Blood Pressure 128/81 03/17/19 16:08 O2 Sat by Pulse Oximetry 94 03/17/19 16:08 Temperature 98.6 F 03/17/19 16:15 Pulse Rate 142 03/17/19 16:48 Respiratory Rate 16 03/17/19 16:48 Blood Pressure 97/47 03/17/19 16:48 O2 Sat by Pulse Oximetry 97 03/17/19 16:48 Oxygen Delivery Oxygen Delivery Room Air Medical Decision Making - Lab Data Result diagrams: 03/17/19 16:28 03/17/19 16:28 Lab Results 03/17/19 03/17/19 03/17/19 Range/Units 16:24 16:28 16:28 WBC 5.7 (4.3-11.1) K/mcL RBC 5.07 (4.19-5.50) M/mcL Hgb 16.1 (12.9-16.9) g/dL Hct 48.1 (37.5-50.1) % MCV 94.9 (83.0-100.0) fL MCH 31.8 (28.0-33.3) pg MCHC 33.5 (31.6-35.5) g/dL RDW 14.0 (11.5-14.5) % Plt Count 151 (140-400) K/mcL MPV 9.6 (9.4-12.4) fL Immature Gran % 0.2 (0-4) % Seg Neutrophils % 42.6 % Lymphocytes % 43.5 % Monocytes % 10.9 % Eosinophils % 2.3 % Basophils % 0.5 % Neutrophils # 2.4 (1.6-8.9) K/mcL Lymphocytes # 2.5 (0.6-4.6) K/mcL Monocytes # 0.6 (0.0-1.3) K/mcL Eosinophils # 0.1 (0.0-0.6) K/mcL Basophils # 0.0 (0.0-0.2) K/mcL PT 11.7 (9.4-12.1) Seconds INR 1.0 APTT 36.0 (26.0-36.0) Seconds Sodium 141 (136-145) mEq/L Potassium 4.1 (3.5-5.1) mEq/L Chloride 109 H (98-107) mEq/L Carbon Dioxide 22 L (23-29) mEq/L BUN 17 (8-23) mg/dL Creatinine 1.04 (0.70-1.30) mg/dL Est GFR ( Amer) > 60 (> 60) Est GFR (Non-Af Amer) > 60 (> 60) BUN/Creatinine Ratio 16 (6-26) Glucose 170 H (70-105) mg/dL Calculated Osmolality 298 (280-300) Calcium 9.3 (8.6-10.3) mg/dL Phosphorus 2.8 (2.7-4.5) mg/dL Magnesium 2.0 (1.6-2.6) mg/dL Troponin I < 0.03 (< 0.04) ng/mL B-Natriuretic Peptide (Less than 100) pg/mL 03/17/19 Range/Units 16:28 WBC (4.3-11.1) K/mcL RBC (4.19-5.50) M/mcL Hgb (12.9-16.9) g/dL Hct (37.5-50.1) % MCV (83.0-100.0) fL MCH (28.0-33.3) pg MCHC (31.6-35.5) g/dL RDW (11.5-14.5) % Plt Count (140-400) K/mcL MPV (9.4-12.4) fL Immature Gran % (0-4) % Seg Neutrophils % % Lymphocytes % % Monocytes % % Eosinophils % % Basophils % % Neutrophils # (1.6-8.9) K/mcL Lymphocytes # (0.6-4.6) K/mcL Monocytes # (0.0-1.3) K/mcL Eosinophils # (0.0-0.6) K/mcL Basophils # (0.0-0.2) K/mcL PT (9.4-12.1) Seconds INR APTT (26.0-36.0) Seconds Sodium (136-145) mEq/L Potassium (3.5-5.1) mEq/L Chloride (98-107) mEq/L Carbon Dioxide (23-29) mEq/L BUN (8-23) mg/dL Creatinine (0.70-1.30) mg/dL Est GFR ( Amer) (> 60) Est GFR (Non-Af Amer) (> 60) BUN/Creatinine Ratio (6-26) Glucose (70-105) mg/dL Calculated Osmolality (280-300) Calcium (8.6-10.3) mg/dL Phosphorus (2.7-4.5) mg/dL Magnesium (1.6-2.6) mg/dL Troponin I (< 0.04) ng/mL B-Natriuretic Peptide 121 H (Less than 100) pg/mL Critical Care Time Critical Care Time: Yes Total Critical Care Time: 35 Attestation: Critical care performed: Time is exclusive of separately billable procedures. Time includes: direct patient care, patient reassessment, coordination of patient care, interpretation of data (laboratory data, radiology data, and respiratory data), review of patient's medical records, medical consultation and documentation of patient care. Procedures included in critical care time: Procedures excluded from critical care time: Attestation Statement - Attestation Attestation: I examined this patient and my medical decision-making was reviewed with the Resident Physician. I agree with the documented findings, disposition and treatment plan as described except to the extent set forth below. Patient to the ED with an elevated heart rate. Patient has been having a high heart rate home. He saw his PCP who ordered outpatient echo. During echocardiogram his heart rate was in the 140s so he was sent to the ED. Patient denies any symptoms. On exam he is awake and alert in no distress. His heart is tachycardia and irregular. Plan. Patient's initial EKG looks atrial flutter, it looks like he is in atrial fibrillation on the monitor at this time. Patient is given IV Cardizem. We will start him on a drip. Will likely need anticoagulated. Patient will be admitted to medicine. EKG reviewed with the resident. Atrial flutter at 143. Heart rate is improved. He is on IV Cardizem at this time. His been given a dose of Lovenox. He is admitted to medicine.
[2019-03-17 16:41] LABS: Basophils % 0.5 %; Eosinophils # 0.1 K/mcL (0.0-0.6); Eosinophils % 2.3 %; Hematocrit 48.1 % (37.5-50.1); Hemoglobin 16.1 g/dL (12.9-16.9); Immature Granulocytes % 0.2 % (0-4); Lymphocytes # 2.5 K/mcL (0.6-4.6); Lymphocytes % 43.5 %; Mean Corpuscular HGB Conc 33.5 g/dL (31.6-35.5); Mean Corpuscular Hemoglobin 31.8 pg (28.0-33.3); Mean Corpuscular Volume 94.9 fL (83.0-100.0); Mean Platelet Volume 9.6 fL (9.4-12.4); Monocytes # 0.6 K/mcL (0.0-1.3); Monocytes % 10.9 %; Neutrophils # 2.4 K/mcL (1.6-8.9); Platelet Count 151 K/mcL (140-400); Red Blood Count 5.07 M/mcL (4.19-5.50); Segmented Neutrophils % 42.6 %; White Blood Count 5.7 K/mcL (4.3-11.1)
[2019-03-17 17:07] LABS: BUN/Creatinine Ratio 16 (6-26); Blood Urea Nitrogen 17 mg/dL (8-23); Calcium 9.3 mg/dL (8.6-10.3); Carbon Dioxide 22 mEq/L (23-29); Chloride 109 mEq/L (98-107); Glucose 170 mg/dL (70-105); Osmolality,Calculated 298 (280-300); Potassium 4.1 mEq/L (3.5-5.1); Sodium 141 mEq/L (136-145); Troponin I < 0.03 ng/mL (< 0.04); eGFR For African Americans > 60 (> 60); eGFR For Non-African Americans > 60 (> 60)
--- NOTE | 2019-03-17 17:08 | Emergency Department Note ---
Disposition Clinical Impression: Atrial flutter Qualifiers: Atrial flutter type: unspecified Qualified Code(s): I48.92 - Unspecified atrial flutter Disposition: Admitted As Inpatient Forms: ED Satisfaction Letter Time of Disposition: 17:39 General Adult HPI - General Chief complaint: ED Chest Pain Stated complaint: Abnormal Ekg From [facility] Time Seen by Provider: 03/17/19 16:26 Source: patient, family Mode of arrival: ambulatory Limitations: no limitations Nursing Notes Reviewed: Yes Vital Signs Reviewed: Yes - History of Present Illness HPI Narrative: 73M with PMHx of DM and HTN presents after having an echo done for an elevated heart rate. Patient states that he went to his primary care doctor and was found to have an elevated heart rate in the 140s and be in atrial flutter at that time. Patient states that twice since mid February he has had a heart rate in the 140s and has been keeping a daily log. He had an echo done today and when he was found to be in the 140s and atrial flutter he was sent to the emergency department for further evaluation of his elevated heart rate and to attempt to rate control. Patient is completely asymptomatic at this time and denies dizziness, lightheadedness, chest pain, shortness of breath with exertion, abdominal pain, nausea and vomiting. Pain Scale: 0 - Related Data Home Medications Medication Instructions Recorded Confirmed Aspirin Enteric Coated [Aspirin EC] 81 mg PO DAILY 12/31/16 04/22/17 Gabapentin [Neurontin] 800 mg PO HS 12/31/16 04/22/17 Sitagliptin Phos/Metformin HCl 1 each PO BID 12/31/16 04/22/17 [Janumet 50-1,000 mg Tablet] Allergies Allergy/AdvReac Type Severity Reaction Status Date / Time Amoxicillin AdvReac Itching Verified 04/22/17 07:36 hydromorphone [From Dilaudid] AdvReac See Verified 04/22/17 07:36 Comments ketorolac [From Toradol] AdvReac See Verified 04/22/17 07:36 Comments All systems ED: reviewed and negative except as stated. Review of Systems: As Per HPI Constitutional: Denies: fever, chills, weakness Cardiovascular: Denies: chest pain, palpitations, dyspnea on exertion Respiratory: Denies: cough, dyspnea, wheezes Gastrointestinal: Denies: abdominal pain, nausea, vomiting Musculoskeletal: Denies: back pain, neck pain Integumentary: Denies: rash Neurological: Denies: headache Endocrine: Denies: fatigue Past Medical History - Past Medical History Attestation: Yes The following information was validated with the patient. Source: patient Medical history: Reports: arthritis, cancer, diabetes, hyperlipidemia, kidney stones, other Surgical history: Reports: cancer surgery, cholecystectomy, knee replacement, orthopedic, other, other Psychiatric history: Reports: no psych history - Social History Smoking Status: Never smoker Smokeless Tobacco Status: No Alcohol use: Reports: none Drug use: Reports: none Physical Exam - General Limitations: no limitations General appearance: alert, in no apparent distress - Head Head exam: atraumatic, normocephalic - Eye Eye exam: Present: normal appearance, EOMI - Chest Chest inspection: Present: normal inspection. Absent: tenderness, rash - Respiratory Respiratory exam: Present: normal lung sounds bilaterally. Absent: wheezes - Cardiovascular Cardiovascular exam: Present: normal rhythm, tachycardia - Abdominal Exam Abdominal exam: Present: soft, Non-Tender, distention. Absent: guarding, rebound, rigidity - Extremities Exam Extremities exam: Present: normal inspection. Absent: tenderness, pedal edema - Neurological Exam Neurological exam: Present: alert, oriented X3 - Psychiatric Psychiatric exam: Present: normal affect, normal mood - Skin Skin exam: Present: warm, dry, intact Course Vital Signs Temperature 98.6 F 03/17/19 16:08 Pulse Rate 145 03/17/19 16:08 Respiratory Rate 16 03/17/19 16:08 Blood Pressure 128/81 03/17/19 16:08 O2 Sat by Pulse Oximetry 94 03/17/19 16:08 Temperature 98.6 F 03/17/19 16:15 Pulse Rate 142 03/17/19 16:48 Respiratory Rate 16 03/17/19 16:48 Blood Pressure 97/47 03/17/19 16:48 O2 Sat by Pulse Oximetry 97 03/17/19 16:48 Oxygen Delivery Oxygen Delivery Room Air Medical Decision Making - [facility] Narrative Medical decision making narrative: Pt presents with asymptomatic atrial flutter. We will obtain cardiac labs and pursue rate control and anticoagulation and plan on admission for further management. 1730 - pts HR has decreased with cardizem. We will initiate cardizem drip to continue HR management. Labs show a slightly elevated BNP without any other abnormalities. Dr. Duenas has accepted the patient to the hospital at this time. - Medical Records Medical records reviewed: Yes I reviewed the patient's medical records. - Lab Data Lab results reviewed: Yes I reviewed the patient's lab results. Result diagrams: 03/17/19 16:28 03/17/19 16:28 Lab Results 03/17/19 03/17/19 03/17/19 Range/Units 16:28 16:28 16:28 WBC 5.7 (4.3-11.1) K/mcL RBC 5.07 (4.19-5.50) M/mcL Hgb 16.1 (12.9-16.9) g/dL Hct 48.1 (37.5-50.1) % MCV 94.9 (83.0-100.0) fL MCH 31.8 (28.0-33.3) pg MCHC 33.5 (31.6-35.5) g/dL RDW 14.0 (11.5-14.5) % Plt Count 151 (140-400) K/mcL MPV 9.6 (9.4-12.4) fL Immature Gran % 0.2 (0-4) % Seg Neutrophils % 42.6 % Lymphocytes % 43.5 % Monocytes % 10.9 % Eosinophils % 2.3 % Basophils % 0.5 % Neutrophils # 2.4 (1.6-8.9) K/mcL Lymphocytes # 2.5 (0.6-4.6) K/mcL Monocytes # 0.6 (0.0-1.3) K/mcL Eosinophils # 0.1 (0.0-0.6) K/mcL Basophils # 0.0 (0.0-0.2) K/mcL Sodium 141 (136-145) mEq/L Potassium 4.1 (3.5-5.1) mEq/L Chloride 109 H (98-107) mEq/L Carbon Dioxide 22 L (23-29) mEq/L BUN 17 (8-23) mg/dL Creatinine 1.04 (0.70-1.30) mg/dL Est GFR ( Amer) > 60 (> 60) Est GFR (Non-Af Amer) > 60 (> 60) BUN/Creatinine Ratio 16 (6-26) Glucose 170 H (70-105) mg/dL Calculated Osmolality 298 (280-300) Calcium 9.3 (8.6-10.3) mg/dL Troponin I < 0.03 (< 0.04) ng/mL B-Natriuretic Peptide 121 H (Less than 100) pg/mL - Radiology Data Radiology results reviewed: Yes I reviewed the patient's radiology results. - EKG Data EKG #1 EKG attestation: Yes I reviewed and interpreted this EKG. EKG results narrative: EKG obtained at Heart rate 143 bpm, CO interval 94, QRS duration 136, QT 332, QTC 513 Atrial flutter with right bundle branch block. No signs of ST segment elevation or depression meeting sgarbossa criteria. Previous EKG dated shows sinus rhythm with right bundle branch block at 92 bpm.
[2019-03-17] MEDS ORDERED: Naloxone 0.4 MG/ML INJ IVP PRN (17:39)
[2019-03-17] MEDS ORDERED: traMADol 50 MG TABLET PO PRN (17:39)
[2019-03-17] MEDS ORDERED: D5% in Water 1,000 ML IVC PRN (17:44)
[2019-03-17] MEDS ORDERED: *HR* Dextrose 50 % in Water (Syg) 50 ML SYRINGE IVP PRN (17:44)
[2019-03-17] MEDS ORDERED: Dextrose Gel 15 GM/37.5 ML TUBE PO PRN ×2 (17:44)
[2019-03-17] MEDS ORDERED: Isovue-370 500 ML BOTTLE IVP ONE (17:45)
[2019-03-17 18:16] LABS: Prothrombin Time 11.7 Seconds (9.4-12.1)
--- NOTE | 2019-03-17 18:16 | Internal Med History&Physical ---
Date of Encounter: 03/17/19 Time of Encounter: 18:12 Internal Medicine - H&P: HPI Chief complaint: irrregular heart rate Admitted From: Home History of present illness: Mr. Marin is a 73 year old male PMH of DM, Myasthenia gravis, rheumatic fever when as a child, melanoma (removed long time ago), cholecystectomy, BPH. Patient sent to the ED from outpatient Echo after he was found to have a HR in the 140s. Patient reported since mid February he noticed his HR being fluctuating from 130- 140s, He made and appointment to see his PCP and and TTE was ordered. Today when he went to have the TTE done, his HR was found to be in the 140s and was sent to the ED. Patient denies shortness of breath, chest pain, dizziness, or light headedness associated with it. Patient denies weight lost, cold or heat intolerance. Past Med Surg Social Fam HX - Past Medical History Medical history: arthritis, cancer, diabetes, hyperlipidemia, kidney stones, other Additional medical history: myasthenia gravis Psychiatric history: no psych history - Past Surgical History Surgical History: cancer surgery, cholecystectomy, knee replacement, orthopedic, other, other Additional surgical history: uvula removed - Social History Smoking Status: Never smoker Smokeless Tobacco Status: No Alcohol use: none Drug use: none - Family History Father Hx Family Endocrine Disorder: Yes Mother Hx Family Cardiac Disorders: Yes Internal Medicine - H&P: Meds Aspirin Enteric Coated [Aspirin EC] 81 mg PO DAILY 12/31/16 [History] Gabapentin [Neurontin] 800 mg PO HS 12/31/16 [History] Sitagliptin Phos/Metformin HCl [Janumet 50-1,000 mg Tablet] 1 each PO BID 12/31/16 [History] Allergy/AdvReac Type Severity Reaction Status Date / Time Amoxicillin AdvReac Itching Verified 04/22/17 07:36 hydromorphone [From Dilaudid] AdvReac See Verified 04/22/17 07:36 Comments ketorolac [From Toradol] AdvReac See Verified 04/22/17 07:36 Comments All Systems PM: A 10-system review of systems was performed and is negative for pertinent findings except as documented above in the HPI. - Constitutional Constitutional: no chills, no fever(s), no weakness - EENT Eyes: no blurry vision Nose, mouth and throat: no hoarseness - Cardiovascular Cardiovascular ROS IM: irregular heart rhythm, no chest pain, no diaphoresis, no dyspnea, no dyspnea on exertion, no edema, no lightheadedness, no palpitations, no paroxysmal nocturnal dyspnea - Respiratory Respiratory: no cough, no wheezing, no excessive phlegm production - Gastrointestinal Gastrointestinal: no abdominal pain, no nausea, no vomiting - Genitourinary Genitourinary ROS male: no dysuria - Musculoskeletal Musculoskeletal ROS IM: no arthralgias - Integumentary Integumentary IM: no erythema - Neurological Neurological ROS: no frequent falls, no weakness - Psychiatric Psychiatric: no anxiety, no hopelessness - Endocrine Endocrine IM: no cold intolerance, no excessive sweating - Hematologic/Lymphatic Hematologic/Lymphatic: no lymphadenopathy - Allergic/Immunologic Allergic/Immunologic: no GI upset with certain foods - Constitutional Vitals: Temp Pulse Resp BP Pulse Ox 98.6 F 142 16 97/47 97 03/17/19 16:15 03/17/19 16:48 03/17/19 16:48 03/17/19 16:48 03/17/19 16:48 Exam: Vitals: Reviewed General: Alert and oriented x4. In no distress Cardiovascular: Irregularly irregular, normal S1 & S2, no rubs, murmurs or gallops. Lungs: CTA b/l, no wheezes or crackles. Abdomen: Obese, soft, non-tender, no rigidity. Extremities: No deformity, no edema or tenderness, no joint swelling or clubbing. Neurological: Normal cognition and motor skills. Rest of the physical exam is non contributory Internal Med - H&P Results - Labs CBC & Chem 7: 03/17/19 16:28 03/17/19 16:28 Labs: Short CBC 03/17/19 Range/Units 16:28 WBC 5.7 (4.3-11.1) K/mcL Hgb 16.1 (12.9-16.9) g/dL Hct 48.1 (37.5-50.1) % Plt Count 151 (140-400) K/mcL Neutrophils # 2.4 (1.6-8.9) K/mcL BMP 03/17/19 16:28 Sodium 141 Potassium 4.1 Chloride 109 H Carbon Dioxide 22 L BUN 17 Creatinine 1.04 Glucose 170 H Calcium 9.3 Cardiac Enzymes 03/17/19 Range/Units 16:28 Troponin I < 0.03 (< 0.04) ng/mL - Impressions ITS Impressions Chest X-Ray 03/17/19 16:28 IMPRESSION: No acute cardiopulmonary abnormality. D/ / Mike Villatoro MD / Mike Villatoro MD Interpreting Provider: Mike Villatoro MD - Diagnostic Studies Chest x-ray Status: image reviewed by me (no infiltrates or acute abnormalities. 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 Marin is a 73 year old male PMH of DM, Myasthenia gravis, rheumatic fever when as a child, melanoma (removed long time ago), cholecystectomy, BPH. Patient sent to the ED from outpatient Echo after he was found to have a HR in the 140s. Assessment: 1. Atrial flutter 2. DM 3. HTN 4. HLD 5. Hx of Myasthenia Gravis 6. VTE prophylaxis Plan: patient reported irregular heart beat in the 140s since mid february - started on a cardizem drip - full dose anticoagulation with lovenox 120mg subq BID. [id number] Score >3. - TTE ordered to r/o valvular abnormalities. patient with Hx of rheumatic fever - CTA of the chest - cardiology consulted recommendations appreciated - started on metoprolol 25mg/PO daily - mag and phosp level, ths and serial trops ordered - carbs controlled diet - started on short and long acting insulin coverage. - Time Spent With Patient Total time spent is greater than 50% in coordination of care (as documented) at patient's floor/unit and/or counseling patient: Greater than 35 minutes (50)
[2019-03-17 18:21] LABS: Phosphorous 2.8 mg/dL (2.7-4.5)
[2019-03-17 18:42] LABS: Thyroid Stimulating Hormone 3.287 mcIU/mL (0.340-5.600)
[2019-03-17] MEDS: *HR* Enoxaparin 120 MG/0.8 ML SYRINGE SQ SCH (19:05)
[2019-03-17] MEDS: Insulin DETEMIR 100 UNIT/ML X5UNITS SQ SCH (23:24)
[2019-03-18 04:57] LABS: Estimated Average Glucose 163 mg/dl
[2019-03-18 05:01] LABS: Chol/HDL Ratio 4.4 (0-4.9); Cholesterol 161 mg/dL (< 200); HDL Cholesterol 37 mg/dL (40-59); LDL Cholesterol,Calculated 108 mg/dL (0-99); Triglycerides 79 mg/dL (< 150); Troponin I < 0.03 ng/mL (< 0.04)
[2019-03-18] MEDS: *HR* Enoxaparin 120 MG/0.8 ML SYRINGE SQ SCH (06:19)
[2019-03-18 06:27] LABS: Alanine Aminotransferase 13 Units/L (7-52); Albumin/Globulin Ratio 1.4 (1.1-2.2); Alkaline Phosphatase 57 Units/L (34-104); Aspartate Amino Transferase 26 Units/L (13-39); BUN/Creatinine Ratio 20 (6-26); Bilirubin,Total 0.9 mg/dL (0.3-1.0); Blood Urea Nitrogen 16 mg/dL (8-23); Calcium 9.2 mg/dL (8.6-10.3); Carbon Dioxide 17 mEq/L (23-29); Chloride 108 mEq/L (98-107); Globulin 2.8 g/dL (2.4-3.5); Glucose 115 mg/dL (70-105); Osmolality,Calculated 290 (280-300); Potassium 4.1 mEq/L (3.5-5.1); Sodium 139 mEq/L (136-145); Total Protein 6.8 g/dL (6.4-8.9); eGFR For African Americans > 60 (> 60); eGFR For Non-African Americans > 60 (> 60)
[2019-03-18] MEDS: Insulin LISPRO 300 UNITS/3 ML VIAL SQ SCH ×4 (08:18→16:47)
[2019-03-18] MEDS ORDERED: Metoprolol XL (24 HR) Succ 25 MG TAB.ER.24H PO SCH (09:00)
[2019-03-18] MEDS: Insulin DETEMIR 100 UNIT/ML X5UNITS SQ SCH ×2 (09:10→21:14)
--- NOTE | 2019-03-18 09:23 | Internal Med Progress Note ---
Hospitalist Progress Note - Encounter Date of Encounter: 03/18/19 Time of Encounter: 09:20 - Subjective Interval History: I have seen and evaluated the patient at bedside. Patient reported feeling well. denies chest pain, nausea, vomiting. dizziness or light headedness. - Exam Vitals: Temp Pulse Resp BP Pulse Ox 97.8 F 110 18 115/84 95 03/18/19 08:01 03/18/19 08:01 03/18/19 08:01 03/18/19 08:01 03/18/19 08:01 Exam: Vitals: Reviewed General: Alert and oriented x4. In no distress Cardiovascular: Irregularly irregular, normal S1 & S2, no rubs, murmurs or gal lops. Lungs: CTA b/l, no wheezes or crackles. Abdomen: Obese, soft, non-tender, no rigidity. Extremities: No edema Neurological: No focal neurological abnormalities. Rest of the physical exam is non contributory - Assessment and Plan (1) Atrial flutter Current Visit: Yes Status: Acute (2) DVT prophylaxis Current Visit: No Status: Chronic (3) Essential hypertension Current Visit: No Status: Chronic (4) Hyperlipidemia Current Visit: No Status: Acute (5) Parkinson disease Current Visit: No Status: Chronic (6) Type 2 diabetes mellitus Current Visit: No Status: Chronic - Summary of Assessment and Plan Summary of Assessment and Plan: Mr. Marin is a 73 year old male PMH of DM, Myasthenia gravis, rheumatic fever when as a child, melanoma (removed long time ago), cholecystectomy, BPH. Patient sent to the ED from outpatient Echo after he was found to have a HR in the 140s. Assessment: 1. Atrial fibrillation with RvR. 2. DM 3. HTN 4. HLD 5. Hx of Myasthenia Gravis 6. VTE prophylaxis Plan: [id number] Score >3. - C/W cardizem drip, titrate per protocol - on metoprolol 25mg/PO daily - DC lovenox 120mg subq BID. - Started on apixaban 5mg/PO BID. - cardiology consulted recommendations appreciated - Blood sugar well controlled. c/w carbs controlled diet. on levemir 10 units BID, lispro low dose sliding scale ac. - intermittent pneumatic compressions for dvt prophylaxis Disposition: - Patient to remain in the hospital due to A.fib with RvR on a cardizem drip. - Time Spent with Patient Total time spent is greater than 50% in coordination of care (as documented) at patient's floor/unit and/or counseling patient: Greater than 35 minutes (40) Plan of Care Discussed with: patient (and the nurse.) Internal Medicine: Result - Labs CBC & Chem 7: 03/17/19 16:28 03/18/19 04:05 Labs: Short CBC 03/17/19 Range/Units 16:28 WBC 5.7 (4.3-11.1) K/mcL Hgb 16.1 (12.9-16.9) g/dL Hct 48.1 (37.5-50.1) % Plt Count 151 (140-400) K/mcL Neutrophils # 2.4 (1.6-8.9) K/mcL BMP 03/17/19 03/18/19 16:28 04:05 Sodium 141 139 Potassium 4.1 4.1 Chloride 109 H 108 H Carbon Dioxide 22 L 17 L BUN 17 16 Creatinine 1.04 0.80 Glucose 170 H 115 H Calcium 9.3 9.2 Cardiac Enzymes 03/17/19 03/17/19 03/18/19 Range/Units 16:28 22:34 04:05 Troponin I < 0.03 < 0.03 < 0.03 (< 0.04) ng/mL Liver Function 03/18/19 Range/Units 04:05 Total Bilirubin 0.9 (0.3-1.0) mg/dL AST 26 (13-39) Units/L ALT 13 (7-52) Units/L Alkaline Phosphatase 57 (34-104) Units/L Albumin 4.0 (3.5-5.7) g/dL - ABG Interpretation ABG results: PT/INR, D-dimer PT 11.7 Seconds (9.4-12.1) 03/17/19 16:24 - Impressions Impressions Chest X-Ray 03/17/19 16:28 IMPRESSION: No acute cardiopulmonary abnormality. D/ / Mike Villatoro MD / Mike Villatoro MD Interpreting Provider: Mike Villatoro MD Chest CTA 03/17/19 17:45 IMPRESSION: No evidence of pulmonary embolism or acute pulmonary abnormality. D/ / Julieta Bean Cha, MD / Julieta Bean Cha, MD Interpreting Provider: Julieta Bean Cha, MD Consult Discharge Plan - Plan Referrals: Rey Quigley DO [Primary Care Provider] - ___ (1) Atrial flutter Qualifiers: Atrial flutter type: unspecified Qualified Code(s): I48.92 - Unspecified atrial flutter (4) Hyperlipidemia Qualifiers: Hyperlipidemia type: mixed hyperlipidemia Qualified Code(s): E78.2 - Mixed hyperlipidemia (6) Type 2 diabetes mellitus Qualifiers: Diabetes mellitus buttermaker insulin use: without buttermaker use Diabetes mellitus complication status: without complication Qualified Code(s): E11.9 - Type 2 diabetes mellitus without complications
--- NOTE | 2019-03-18 09:24 | Cardiology Consult Note ---
<Deedee Ingram - Last Filed: 03/18/19 11:07> Date of Encounter: 03/18/19 Time of Encounter: 09:21 Assessment and Plan (1) Atrial flutter Current Visit: Yes Status: Acute EKG reviewed: Aflutter. 12hr tele reviewed: average HR over night 110. K+, Mag, TSH WNL. Trops negative x3. Asymptomatic, denies CP, palpitations & SOB. -Echo 03/17/19: LVEF 65%, no significant valvular dysfunction. -Stress test 11/28: negative for ischemia On 15mg/hr Cardizem gtt and 25mg Toprol XL with borderline blood pressures. Will load with IV Dig for total of 1mg. Will plan to change to PO Cardizem when able. Will attempt rate control & AC, if unable to rate control will consider TAYLOR/DCCV. CHADS2-VASC 2. Starting Eliquis tonight. A/R/B discussed with pt. Qualifiers: Atrial flutter type: unspecified Qualified Code(s): I48.92 - Unspecified atrial flutter Discussion w patient/family: The assessment and plan as outlined above was discussed with the patient and/or family members who expressed understanding and agreement. All questions were answered. Thank you for involving us in the care of your patient. Please call with any questions. The above assessment and plan will be discussed with Dr. Banks and make changes as appropriate. History of Present Illness Consult date: 03/18/19 Consult reason: Afib RVR History of present illness: Mr. Marin is a 73 year old male with PMH of DM, Myasthenia gravis, rheumatic fever when as a child, melanoma (removed long time ago), cholecystectomy, BPH. Patient sent to the ED from outpatient Echo after he was found to have a HR in t he 140s. Patient reported since mid February he noticed his HR being fluctuating from 130- 140s, He made and appointment to see his PCP and and TTE was ordered. Today when he went to have the TTE done, his HR was found to be in the 140s and was sent to the ED. Patient denies shortness of breath, chest pain, dizziness, or light headedness associated with it. Patient denies weight lost, cold or heat i ntolerance. Past Med Surg Social Fam HX - Past Medical History Medical history: arthritis, cancer, diabetes, hyperlipidemia, kidney stones, other Additional medical history: myasthenia gravis Psychiatric history: no psych history - Past Surgical History Surgical History: cancer surgery, cholecystectomy, knee replacement, orthopedic, other, other Additional surgical history: uvula removed - Social History Smoking Status: Never smoker Smokeless Tobacco Status: No Alcohol use: none Drug use: none - Family History Father Hx Family Endocrine Disorder: Yes Mother Hx Family Cardiac Disorders: Yes Medications and Allergies Gabapentin [Neurontin] 800 mg PO HS 12/31/16 [History] Sitagliptin Phos/Metformin HCl [Janumet 50-1,000 mg Tablet] 1 each PO BID 12/31/16 [History] Famotidine [Pepcid] 20 mg PO DAILY 03/17/19 [History] Pyridostigmine [place] [Pyridostigmine [place] [facility]] 180 mg PO QPM 03/17/19 [History] Tamsulosin HCl 0.4 mg PO DAILY 03/17/19 [History] Allergy/AdvReac Type Severity Reaction Status Date / Time Amoxicillin AdvReac Itching Verified 03/17/19 18:39 hydromorphone [From Dilaudid] AdvReac See Verified 03/17/19 18:39 Comments ketorolac [From Toradol] AdvReac See Verified 03/17/19 18:39 Comments All Systems Review: The remainder of the systems were reviewed and are negative - Cardiovascular Cardiovascular: as per HPI, no chest pain at rest, no chest pain with exertion, no dyspnea at rest, no dyspnea on exertion, no leg edema, no lightheadedness, no palpitations, no syncope Physical Examination Vital Signs, Last 4 Hours Temp Pulse Resp BP Pulse Ox 03/18/19 08:01 97.8 F 110 18 115/84 95 General: Conversant, No Apparent Distress HEENT: Atraumatic, Normocephaly, Mucus Membranes Moist Neck: No JVD Cardiac: Other (irregular) Lungs: Normal Breath Sounds, No Wheeze, Rales, Rhonchi Neuro: Alert and responsive, No focal deficits noted Abdomen: Soft, Non-Tender Skin: No rashes noted on visualized skin Musculoskeletal: No Chest Wall Tenderness Extremities: No Clubbing, No Cyanosis, No Edema, Normal Pulses Results 03/17/19 16:28 03/18/19 04:05 Lab Results 03/17/19 03/17/19 03/17/19 16:24 16:28 16:28 WBC 5.7 Hgb 16.1 Hct 48.1 Plt Count 151 INR 1.0 APTT 36.0 Sodium 141 Potassium 4.1 Chloride 109 H Carbon Dioxide 22 L BUN 17 Creatinine 1.04 Glucose 170 H Calcium 9.3 Magnesium 2.0 Total Bilirubin AST ALT Alkaline Phosphatase Troponin I < 0.03 B-Natriuretic Peptide TSH 3.287 03/17/19 03/17/19 03/18/19 16:28 22:34 04:05 WBC Hgb Hct Plt Count INR APTT Sodium Potassium Chloride Carbon Dioxide BUN Creatinine Glucose Calcium Magnesium Total Bilirubin AST ALT Alkaline Phosphatase Troponin I < 0.03 < 0.03 B-Natriuretic Peptide 121 H TSH 03/18/19 04:05 WBC Hgb Hct Plt Count INR APTT Sodium 139 Potassium 4.1 Chloride 108 H Carbon Dioxide 17 L BUN 16 Creatinine 0.80 Glucose 115 H Calcium 9.2 Magnesium Total Bilirubin 0.9 AST 26 ALT 13 Alkaline Phosphatase 57 Troponin I B-Natriuretic Peptide TSH - Imaging and Cardiology Echo: report reviewed Other Results: 12hr tele reviewed: average HR 110, irrgeular, no events noted - EKG Interpretation EKG results cardiology: personally reviewed (Rosalva) Consult Discharge Plan - Plan Referrals: Rey Quigley DO [Primary Care Provider] - CHADS2-VASC Score - Score Age: 65-74 Sex: Male CHF History: No Hypertension history: No Stroke/TIA/Thromboembolism Hx: No Vascular disease history: No Diabetes history: Yes Score: 2 <Damaris Banks - Last Filed: 03/18/19 14:59> Date of Encounter: 03/18/19 - Attending Attestation I have personally performed a face to face evaluation on this patient. I have reviewed and agree with the care plan. History and Exam by me shows: 73-year-old male presents with new onset atrial flutter recent negative stress test November 2018 and current preserved ejection fraction on echocardiogram with no major valvular abnormalities. Patient currently on anticoagulation with eliquis but continues to be in atrial flutter however rate controlled. Will wean off Cardizem drip and titrate Toprol if dig load does not improve rate control Assessment and Plan Discussion w patient/family: The assessment and plan as outlined above was discussed with the patient and/or family members who expressed understanding and agreement. All questions were ans wered. Thank you for involving us in the care of your patient. Please call with any questions. History of Present Illness History of present illness: Mr. Marin is a 73 year old male All Systems Review: The remainder of the systems were reviewed and are negative Physical Examination Vital Signs, Last 4 Hours Temp Pulse Resp BP Pulse Ox 03/18/19 11:21 97.9 F 85 18 100/70 95 Results 03/17/19 16:28 03/18/19 04:05 Lab Results 03/17/19 03/17/19 03/17/19 16:24 16:28 16:28 WBC 5.7 Hgb 16.1 Hct 48.1 Plt Count 151 INR 1.0 APTT 36.0 Sodium 141 Potassium 4.1 Chloride 109 H Carbon Dioxide 22 L BUN 17 Creatinine 1.04 Glucose 170 H Calcium 9.3 Magnesium 2.0 Total Bilirubin AST ALT Alkaline Phosphatase Troponin I < 0.03 B-Natriuretic Peptide TSH 3.287 03/17/19 03/17/19 03/18/19 16:28 22:34 04:05 WBC Hgb Hct Plt Count INR APTT Sodium Potassium Chloride Carbon Dioxide BUN Creatinine Glucose Calcium Magnesium Total Bilirubin AST ALT Alkaline Phosphatase Troponin I < 0.03 < 0.03 B-Natriuretic Peptide 121 H TSH 03/18/19 04:05 WBC Hgb Hct Plt Count INR APTT Sodium 139 Potassium 4.1 Chloride 108 H Carbon Dioxide 17 L BUN 16 Creatinine 0.80 Glucose 115 H Calcium 9.2 Magnesium Total Bilirubin 0.9 AST 26 ALT 13 Alkaline Phosphatase 57 Troponin I B-Natriuretic Peptide TSH
[2019-03-18] MEDS ORDERED: *HR* Digoxin 0.5 MG/2 ML AMPUL IVP ONE (10:45)
--- NOTE | 2019-03-18 11:42 | Electrocardiograph Report ---
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
[2019-03-18] MEDS: *HR* Digoxin 0.5 MG/2 ML AMPUL IVP SCH ×2 (15:23→21:12)
[2019-03-18] MEDS ORDERED: *HR* Digoxin 0.5 MG/2 ML AMPUL IVP SCH (17:00)
--- NOTE | 2019-03-18 17:39 | Electrocardiograph Report ---
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
[2019-03-18] MEDS ORDERED: PYRIDOSTIGMINE BROMIDE PO SCH (21:00)
[2019-03-18] MEDS: Apixaban 5 MG TABLET PO SCH (21:11)
[2019-03-19] MEDS ORDERED: Ondansetron 4 MG/2 ML VIAL IVP ONE (06:23)
[2019-03-19] MEDS ORDERED: Ondansetron 4 MG/2 ML VIAL ONE (06:29)
[2019-03-19 07:50] VITALS: BP 129/78
[2019-03-19] MEDS: Insulin DETEMIR 100 UNIT/ML X5UNITS SQ SCH (07:58)
[2019-03-19] MEDS: Apixaban 5 MG TABLET PO SCH (07:58)
[2019-03-19] MEDS: Insulin LISPRO 300 UNITS/3 ML VIAL SQ SCH ×4 (07:59→11:28)
[2019-03-19] MEDS: Metoprolol XL (24 HR) Succ 50 MG TAB.ER.24H PO SCH ×2 (08:59→09:04)
[2019-03-19] MEDS ORDERED: Metoprolol XL (24 HR) Succ 50 MG TAB.ER.24H PO SCH (09:00)
--- NOTE | 2019-03-19 12:00 | Cardiology Progress Note ---
Date of Encounter: 03/19/19 Time of Encounter: 12:00 Assessment and Plan (1) Atrial flutter Current Visit: Yes Status: Acute Per Cardiology: New onset Aflutter. Appears may have had atrial flutter dating back to February 2019. Status post IV digoxin load yesterday. 12hr tele reviewed with avg HR 93. This morning telemetry showed A. fib in the 100s to 110s, Toprol-XL was increased from 50 mg by mouth daily to 75 mg by mouth daily with systolic blood pressures in the 120s. Currently heart rate atrial flutter in the 80s. TSH and magnesium stable. Troponins negative 3. Echo 03/17/19: LVEF 65%, no significant valvular dysfunction. Stress test 11/28: negative for ischemia. CHADS2-VASC 2, now on Eliquis 5mg PO BID. Denies any active bleeding or blood loss. Cardiology signing off, reconsult as needed, follow-up arranged. Continue to titrate beta nando if warranted or consider addition of calcium channel nando. Patient verbalized understanding and agreed with plan. All questions answered. Qualifiers: Atrial flutter type: unspecified Qualified Code(s): I48.92 - Unspecified atrial flutter Discussion w patient/family: The assessment and plan as outlined above was discussed with the patient and/or family members who expressed understanding and agreement. All questions were answered. Thank you for involving us in the care of your patient. Please call with any questions. Subjective Principal diagnosis: Afib Interval history: Denies any concerns or complaints overnight. He denies any chest pain, shortness of breath, palpitations. Denies any active bleeding or blood loss. Objective Selected Entries 03/19/19 05:32 03/19/19 07:47 03/19/19 08:07 Temperature 98.0 F Pulse Rate 79 Respiratory Rate 16 Blood Pressure 129/78 O2 Sat by Pulse Oximetry 95 Oxygen Delivery Method Room Air General: Conversant, No Apparent Distress HEENT: Atraumatic, Normocephaly, Mucus Membranes Moist Neck: No JVD, Normal carotid pulses Cardiac: Normal S1 and S2, No Murmur, Other (Irregularly irregular) Lungs: Normal Breath Sounds, No Wheeze, Rales, Rhonchi Neuro: Alert and responsive, No focal deficits noted Abdomen: Soft, Non-Tender Skin: No rashes noted on visualized skin Musculoskeletal: No Chest Wall Tenderness Extremities: No Clubbing, No Cyanosis, No Edema, Normal Pulses Results 03/17/19 16:28 03/18/19 04:05 Laboratory Tests 03/17/19 03/17/19 03/17/19 16:28 16:28 22:34 Creatinine Est GFR (Non-Af Amer) Hemoglobin A1c Magnesium 2.0 AST ALT Troponin I < 0.03 < 0.03 B-Natriuretic Peptide 121 H LDL Cholesterol, Calc TSH 3.287 03/18/19 03/18/19 03/18/19 04:05 04:05 04:05 Creatinine 0.80 Est GFR (Non-Af Amer) > 60 Hemoglobin A1c 7.3 H Magnesium AST 26 ALT 13 Troponin I < 0.03 B-Natriuretic Peptide LDL Cholesterol, Calc 108 H TSH ITS Impressions Chest X-Ray 03/17/19 16:28 IMPRESSION: No acute cardiopulmonary abnormality. D/ / Mike Villatoro MD / Mike Villatoro MD Interpreting Provider: Mike Villatoro MD Chest CTA 03/17/19 17:45 IMPRESSION: No evidence of pulmonary embolism or acute pulmonary abnormality. D/ / Julieta Bean Cha, MD / Julieta Bean Cha, MD Interpreting Provider: Julieta Bean Cha, MD Active Medications Apixaban (Eliquis) 5 mg PO BID [facility]; Protocol Stop: 09/17/19 21:01 Last Admin: 03/19/19 07:58 Dose: 5 mg Documented by: Dextrose/Water (Dextrose 50% (Syg)) 25 ml IVP AD PRN PRN Reason: Hypoglycemia Stop: 09/16/19 17:45 Glucagon (Glucagen) 1 mg IM ONCE PRN PRN Reason: Hypoglycemia Stop: 09/16/19 17:45 Glucose (Gluctose) 15 gm PO ONCE PRN PRN Reason: Hypoglycemia Stop: 09/16/19 17:45 Glucose (Gluctose) 30 gm PO ONCE PRN PRN Reason: Hypoglycemia Stop: 09/16/19 17:45 Diltiazem HCl 50 mg/ Sodium (Chloride) 50 mls @ 5 mls/hr IVC CONT [facility]; Protocol Stop: 09/16/19 17:16 Last Admin: 03/18/19 14:05 Dose: 5 mg/hr, 5 mls/hr Documented by: Dextrose (Dextrose 5%) 1,000 mls @ 100 mls/hr IVC .Q10H PRN PRN Reason: HYPOGLYCEMIA Stop: 09/16/19 17:45 Insulin Detemir (Levemir) 10 unit SQ BID [facility] Stop: 09/16/19 21:01 Last Admin: 03/19/19 07:58 Dose: 10 unit Documented by: Insulin Human Lispro (Humalog) 0 units SQ TIDAC [facility]; Protocol Stop: 09/17/19 07:31 Last Admin: 03/19/19 11:28 Dose: Not Given Documented by: Insulin Human Lispro (Humalog) 4 units SQ TIDWM [facility] Stop: 09/17/19 17:01 Last Admin: 03/19/19 11:28 Dose: Not Given Documented by: Metoprolol Succinate (Toprol Xl) 75 mg PO DAILY [facility] Stop: 09/18/19 08:31 Last Admin: 03/19/19 09:04 Dose: Not Given Documented by: Naloxone HCl (Narcan) 0.4 mg IVP Q2MPRN PRN PRN Reason: SEE COMMENTS Stop: 09/16/19 17:40 Pharmacy Profile Note (Patient Taking Own Medication) 1 each PO QPM [facility] Stop: 09/17/19 21:01 Last Admin: 03/18/19 21:14 Dose: 1 each Documented by: Tramadol HCl (Ultram) 50 mg PO Q6HR PRN PRN Reason: Moderate Pain Stop: 09/16/19 17:40 - Imaging and Cardiology Stress Test: report reviewed Echo: report reviewed Consult Discharge Plan - Plan Referrals: Rey Quigley DO [Primary Care Provider] - (Please call PCP upon discharge to schedule an appointment within 7-10 days.)
--- NOTE | 2019-03-19 12:58 | Discharge Summary ---
Date of Encounter: 03/19/19 Time of Encounter: 12:53 - Discharge Diagnosis (1) Atrial flutter Priority: Primary Status: Resolved Qualifiers: Atrial flutter type: unspecified Qualified Code(s): I48.92 - Unspecified atrial flutter (2) DVT prophylaxis Priority: Secondary Status: Chronic (3) Essential hypertension Priority: Secondary Status: Chronic (4) Hyperlipidemia Priority: Secondary Status: Chronic Qualifiers: Hyperlipidemia type: mixed hyperlipidemia Qualified Code(s): E78.2 - Mixed hyperlipidemia (5) Parkinson disease Priority: Secondary Status: Chronic (6) Type 2 diabetes mellitus Priority: Secondary Status: Chronic Qualifiers: Diabetes mellitus assisted insulin use: without assisted use Diabetes mellitus complication status: without complication Qualified Code(s): E11.9 - Type 2 diabetes mellitus without complications Hospital course: Mr. Marin is a 73 year old male PMH of DM, Myasthenia gravis, rheumatic fever when as a child, melanoma (removed long time ago), cholecystectomy, BPH. Patient sent to the ED from outpatient Echo after he was found to have a HR in the 140s. Patient admitted to the hospital due to Atrial flutter. Patient was managed with cardizem drip, started on an bb and loaded with digoxin with successful rate control. Patient started on an oral anticoagulant due to CHADSVASC score >2. Patient is hemodynamically stable to be discharged home. Recommended to follow up with cardiology within a week of hospital discharge. EV/EV echocardiogram Impressions: LVEF 65%. Normal LV chamber size, wall thickness and function. Indeterminate diastolic function. Normal right ventricular structure and function. No evidence of pulmonary hypertension. No significant valvular dysfunction. CT/CT angio chest IMPRESSION: No evidence of pulmonary embolism or acute pulmonary abnormality. - Time Spent with Patient Total time spent providing and/or coordinating discharge services: Time spent: Greater than 30 minutes (35) - Discharge Medications Prescriptions: New Apixaban [Eliquis] 5 mg PO BID 30 Days #60 tablet Metoprolol XL (24 HR) Succ [Toprol Xl] 75 mg PO DAILY 30 Days #30 tab.er.24h Continued Sitagliptin Phos/Metformin HCl [Janumet 50-1,000 mg Tablet] 1 each PO BID Gabapentin [Neurontin] 800 mg PO HS Famotidine [Pepcid] 20 mg PO DAILY Pyridostigmine [place] [Pyridostigmine [place] ER] 180 mg PO QPM Tamsulosin HCl 0.4 mg PO DAILY Home Medications: Gabapentin [Neurontin] 800 mg PO HS 12/31/16 [History] Sitagliptin Phos/Metformin HCl [Janumet 50-1,000 mg Tablet] 1 each PO BID 12/31/16 [History] Famotidine [Pepcid] 20 mg PO DAILY 03/17/19 [History] Pyridostigmine [place] [Pyridostigmine [place] ER] 180 mg PO QPM 03/17/19 [History] Tamsulosin HCl 0.4 mg PO DAILY 03/17/19 [History] Apixaban [Eliquis] 5 mg PO BID 30 Days #60 tablet 03/19/19 [Rx] Metoprolol XL (24 HR) Succ [Toprol Xl] 75 mg PO DAILY 30 Days #30 tab.er.24h 03/19/19 [Rx] Allergies/Adverse Reactions: Allergy/AdvReac Type Severity Reaction Status Date / Time Amoxicillin AdvReac Itching Verified 03/17/19 18:39 hydromorphone [From Dilaudid] AdvReac See Verified 03/17/19 18:39 Comments ketorolac [From Toradol] AdvReac See Verified 03/17/19 18:39 Comments Date of admission: 03/18/19 10:03 Primary care physician: Rey Quigley DO Consults: 03/17/19 17:43 Consult to Cardiology [CONS] Routine Comment: Consulting Provider: Cardiology Poppy Reason for Consult: new diagnosis of A.fib. A.fib with RvR Call Completed: No 03/17/19 22:57 Consult to Sales And Marketing Vice President [CONS] Routine Reason for SW Consult: Advanced directives - Constitutional Vitals: Temp Pulse Resp BP Pulse Ox 98.0 F 79 16 129/78 95 03/19/19 07:47 03/19/19 07:47 03/19/19 07:47 03/19/19 07:47 03/19/19 05:32 Exam: Vitals: Reviewed General: Alert and oriented x4. In no distress Cardiovascular: Irregularly irregular, normal S1 & S2, no rubs, murmurs or gallops. Lungs: CTA b/l, no wheezes or crackles. Abdomen: Obese, soft, non-tender, no rigidity. NABS in all 4 quadrants Extremities: No edema Neurological: No focal neurological abnormalities. Rest of the physical exam is non contributory - Patient Status Disposition: Home, Self-Care Condition: Good Functional capacity at discharge: independent ambulation Overall status at discharge: patient is back to baseline - Discharge Instructions Follow Up With: Rey Quigley DO [Primary Care Provider] - (Please call PCP upon discharge to schedule an appointment within 7-10 days.) - Diet and Activity Activity: resume usual activities as tolerated Diet: diabetic diet
== END 2019-03-19 13:56 | disposition home or self-care (01) | DRG 310 ==
LOC: EMEROOARM 16:04 → 2NENU 16:04
PROVIDERS: ADMIT Internal Medicine; ATTEND Internal Medicine

== ENCOUNTER 2022-01-23 18:14 | Inpatient (IN) ==
[2022-01-23 19:13] LABS: VBG HCO3 20 mEq/L (21-27); VBG PCO2 27 mmHg (41-51); VBG PH 7.47 pH Units (7.32-7.42); VBG PO2 89 mmHg (25-50)
[2022-01-23 19:15] LABS: Hematocrit 39.7 % (37.5-50.1); Hemoglobin 12.6 g/dL (12.9-16.9); Mean Corpuscular HGB Conc 31.7 g/dL (31.6-35.5); Mean Corpuscular Hemoglobin 28.2 pg (28.0-33.3); Mean Corpuscular Volume 88.8 fL (83.0-100.0); Mean Platelet Volume 9.8 fL (9.4-12.4); Platelet Count 125 K/mcL (140-400); Red Blood Count 4.47 M/mcL (4.19-5.50); Red Cell Distribution Width 15.9 % (11.5-14.5)
[2022-01-23] MEDS ORDERED: Acetaminophen 325 MG TABLET PO ONE (19:16)
[2022-01-23] MEDS ORDERED: cefTRIAXone 2,000 MG in 0.9 % Sodium Chloride Mini Bag 100 ML IVPB ONE (19:16)
[2022-01-23 19:23] LABS: INR 1.2; Prothrombin Time 13.5 Seconds (9.4-12.1)
[2022-01-23 19:24] LABS: White Blood Count 5.5 K/mcL (4.3-11.1)
[2022-01-23 19:25] LABS: Activated Partial Thrombo Time 28.5 Seconds (26.0-36.0)
[2022-01-23] MEDS: 0.9 % Sodium Chloride 1,000 ML IV ONE ×2 (19:37→21:11)
[2022-01-23 19:49] LABS: Alanine Aminotransferase 16 Units/L (7-52); Albumin 3.7 g/dL (3.5-5.7); Albumin/Globulin Ratio 0.9 (1.1-2.2); Alkaline Phosphatase 55 Units/L (34-104); Aspartate Amino Transferase 24 Units/L (13-39); BUN/Creatinine Ratio 28 (6-26); Bilirubin,Direct 0.2 mg/dL (0.0-0.2); Bilirubin,Indirect 0.8 mg/dL (0.0-1.0); Blood Urea Nitrogen 27 mg/dL (8-23); Calcium 9.5 mg/dL (8.6-10.3); Carbon Dioxide 18 mEq/L (23-29); Chloride 109 mEq/L (98-107); Globulin 4.3 g/dL (2.4-3.5); Glucose 133 mg/dL (70-105); Lipase 43 Units/L (11-82); Magnesium 1.5 mg/dL (1.6-2.6); Osmolality,Calculated 291 (280-300); Phosphorous 1.8 mg/dL (2.7-4.5); Sodium 137 mEq/L (136-145); Troponin I < 0.03 ng/mL (< 0.04); eGFR For African Americans > 60 (> 60); eGFR For Non-African Americans > 60 (> 60)
[2022-01-23 19:57] LABS: Eosinophils # 0.1 K/mcL (0.0-0.6); Lymphocytes # 0.4 K/mcL (0.6-4.6); Monocytes # 1.2 K/mcL (0.0-1.3); Neutrophils # 3.7 K/mcL (1.6-8.9); Platelet Estimate Normal (Normal)
[2022-01-23] MEDS ORDERED: 0.9 % Sodium Chloride 1,000 ML IV ONE (20:58)
[2022-01-23 21:26] LABS: Bacteria,Urine Few per hpf (None-Few); Bilirubin,Urine Negative (Negative); Blood,Urine Large (Negative); Clarity,Urine Turbid (Clear); Color,Urine Yellow (Yellow); Glucose,Urine (UA) Normal (Normal); Ketones,Urine Negative (Negative); Leukocyte Esterase,Urine Large (Negative); Mucus,Urine Few per lpf (None-Few); Nitrite,Urine Positive (Negative); PH,Urine 5.5 pH Units (5.0-8.0); Protein,Urine 30 mg/dL (Neg-Trace); RBC,Urine 30-50 per hpf (0-3); Renal Epithelial Cells,Urine Few per hpf (None-Few); Specific Gravity,Urine 1.021 (1.010-1.025); Squamous Epithelial Cell,Urine Few per hpf (None-Few); Transitional Epi Cells,Urine Few per hpf (None-Few); Urobilinogen,Urine Normal (Normal); WBC,Urine TNTC per hpf (0-3)
[2022-01-24] MEDS ORDERED: Naloxone 0.4 MG/ML INJ IVP PRN (00:28)
[2022-01-24] MEDS ORDERED: Acetaminophen 325 MG TABLET PO PRN (00:38)
[2022-01-24] MEDS ORDERED: Ondansetron 4 MG/2 ML VIAL IVP PRN (00:38)
[2022-01-24] MEDS ORDERED: *HR* Dextrose 50 % in Water (Syg) 50 ML SYRINGE IVP PRN (02:08)
[2022-01-24] MEDS ORDERED: Dextrose Gel 15 GM/37.5 ML TUBE PO PRN ×2 (02:08)
[2022-01-24] MEDS ORDERED: D5% in Water 1,000 ML IVC PRN (02:08)
[2022-01-24 03:30] LABS: Hematocrit 34.4 % (37.5-50.1); Mean Corpuscular HGB Conc 31.1 g/dL (31.6-35.5); Mean Corpuscular Hemoglobin 28.2 pg (28.0-33.3); Mean Corpuscular Volume 90.8 fL (83.0-100.0); Mean Platelet Volume 9.9 fL (9.4-12.4); Platelet Count 115 K/mcL (140-400); Red Blood Count 3.79 M/mcL (4.19-5.50); Red Cell Distribution Width 16.1 % (11.5-14.5); White Blood Count 6.9 K/mcL (4.3-11.1)
[2022-01-24 03:35] LABS: Hemoglobin 10.7 g/dL (12.9-16.9)
[2022-01-24 03:54] LABS: % Iron Saturation 6 % (20-55); BUN/Creatinine Ratio 29 (6-26); Blood Urea Nitrogen 24 mg/dL (8-23); Calcium 7.4 mg/dL (8.6-10.3); Carbon Dioxide 22 mEq/L (23-29); Chloride 115 mEq/L (98-107); Chol/HDL Ratio 3.5 (0-4.9); Cholesterol 97 mg/dL (< 200); Glucose 97 mg/dL (70-105); HDL Cholesterol 28 mg/dL (40-59); Iron 20 mcg/dL (65-175); LDL Cholesterol,Calculated 57 mg/dL (< 100); Magnesium 1.8 mg/dL (1.6-2.6); Osmolality,Calculated 296 (280-300); Potassium 3.7 mEq/L (3.5-5.1); Sodium 141 mEq/L (136-145); Transferrin 228 mg/dL (203-362); Triglycerides 59 mg/dL (< 150); Troponin I < 0.03 ng/mL (< 0.04); eGFR For African Americans > 60 (> 60); eGFR For Non-African Americans > 60 (> 60)
[2022-01-24 04:02] LABS: Estimated Average Glucose 105 mg/dl; Hemoglobin A1C 5.3 %
[2022-01-24 04:11] LABS: Ferritin 28 ng/mL (20-250)
[2022-01-24 04:15] LABS: Folate 4.5 ng/mL (3.0-16.0)
[2022-01-24] MEDS ORDERED: *HR* Heparin 5,000 UNIT/ML VIAL SQ SCH (06:00)
[2022-01-24] MEDS: Insulin LISPRO 300 UNITS/3 ML VIAL SUBQ SCH ×3 (06:17→18:10)
[2022-01-24] MEDS: Aspirin Enteric Coated 81 MG Tablet PO SCH (08:59)
[2022-01-24] MEDS: 0.9 % Sodium Chloride 1,000 ML IVC SCH ×3 (14:42→14:53)
[2022-01-24] MEDS ORDERED: Pyridostigmine Br 60 MG TABLET PO SCH (18:00)
[2022-01-24] MEDS: Pregabalin 75 MG CAPSULE PO SCH (18:11)
[2022-01-24] MEDS: PYRIDOSTIGMINE 180 MG PO SCH (18:11)
[2022-01-24] MEDS ORDERED: cefTRIAXone 2,000 MG in 0.9 % Sodium Chloride Mini Bag 100 ML IVPB SCH (19:00)
[2022-01-24] MEDS: Methenamine Hippurate [Hiprex] 1 GM Tablet PO SCH (20:55)
[2022-01-25] MEDS: Insulin LISPRO 300 UNITS/3 ML VIAL SUBQ SCH ×4 (00:05→20:19)
[2022-01-25] MEDS: 0.9 % Sodium Chloride 1,000 ML IVC SCH ×3 (01:07→21:57)
[2022-01-25 01:42] LABS: Hemoglobin 12.1 g/dL (12.9-16.9); Mean Corpuscular Volume 90.3 fL (83.0-100.0); Mean Platelet Volume 9.8 fL (9.4-12.4); Platelet Count 132 K/mcL (140-400); Red Blood Count 4.32 M/mcL (4.19-5.50); Red Cell Distribution Width 15.8 % (11.5-14.5); White Blood Count 7.3 K/mcL (4.3-11.1)
[2022-01-25 02:07] LABS: BUN/Creatinine Ratio 18 (6-26); Blood Urea Nitrogen 15 mg/dL (8-23); Calcium 8.9 mg/dL (8.6-10.3); Carbon Dioxide 20 mEq/L (23-29); Chloride 109 mEq/L (98-107); Glucose 90 mg/dL (70-105); Osmolality,Calculated 284 (280-300); Potassium 3.8 mEq/L (3.5-5.1); Sodium 137 mEq/L (136-145); eGFR For African Americans > 60 (> 60); eGFR For Non-African Americans > 60 (> 60)
[2022-01-25 02:10] LABS: Alanine Aminotransferase 12 Units/L (7-52); Albumin 3.5 g/dL (3.5-5.7); Albumin/Globulin Ratio 0.9 (1.1-2.2); Alkaline Phosphatase 48 Units/L (34-104); Aspartate Amino Transferase 21 Units/L (13-39); BUN/Creatinine Ratio 19 (6-26); Bilirubin,Total 0.9 mg/dL (0.3-1.0); Blood Urea Nitrogen 15 mg/dL (8-23); Carbon Dioxide 20 mEq/L (23-29); Chloride 109 mEq/L (98-107); Globulin 3.9 g/dL (2.4-3.5); Glucose 90 mg/dL (70-105); Osmolality,Calculated 284 (280-300); Potassium 3.9 mEq/L (3.5-5.1); Sodium 137 mEq/L (136-145); Total Protein 7.4 g/dL (6.4-8.9); eGFR For African Americans > 60 (> 60); eGFR For Non-African Americans > 60 (> 60)
[2022-01-25] MEDS: Aspirin Enteric Coated 81 MG Tablet PO SCH (08:29)
[2022-01-25] MEDS: Famotidine 20 MG TABLET PO SCH (08:30)
[2022-01-25] MEDS: Metoprolol XL (24 HR) Succ 50 MG TAB.ER.24H PO SCH (08:30)
[2022-01-25] MEDS: Cefepime HCl 1,000 MG in 0.9 % Sodium Chloride 10 ML IVP SCH ×2 (11:51→21:55)
[2022-01-25] MEDS: Methenamine Hippurate [Hiprex] 1 GM Tablet PO SCH ×2 (11:52→20:20)
[2022-01-25] MEDS: Pregabalin 75 MG CAPSULE PO SCH (17:27)
[2022-01-25] MEDS: PYRIDOSTIGMINE 180 MG PO SCH (17:27)
[2022-01-26] MEDS: 0.9 % Sodium Chloride 1,000 ML IVC SCH ×2 (07:46→21:13)
[2022-01-26] MEDS: Aspirin Enteric Coated 81 MG Tablet PO SCH (07:47)
[2022-01-26] MEDS: Metoprolol XL (24 HR) Succ 50 MG TAB.ER.24H PO SCH (07:47)
[2022-01-26] MEDS: Famotidine 20 MG TABLET PO SCH (07:47)
[2022-01-26] MEDS: Methenamine Hippurate [Hiprex] 1 GM Tablet PO SCH ×2 (07:48→17:14)
[2022-01-26 08:11] LABS: Basophils % 0.4 %; Eosinophils # 0.1 K/mcL (0.0-0.6); Eosinophils % 1.2 %; Hematocrit 39.6 % (37.5-50.1); Hemoglobin 12.6 g/dL (12.9-16.9); Immature Granulocytes % 0.2 % (0-4); Lymphocytes # 1.8 K/mcL (0.6-4.6); Lymphocytes % 37.4 %; Mean Corpuscular HGB Conc 31.8 g/dL (31.6-35.5); Mean Corpuscular Hemoglobin 28.6 pg (28.0-33.3); Mean Platelet Volume 9.8 fL (9.4-12.4); Monocytes # 0.7 K/mcL (0.0-1.3); Monocytes % 14.6 %; Neutrophils # 2.2 K/mcL (1.6-8.9); Platelet Count 133 K/mcL (140-400); Red Cell Distribution Width 15.6 % (11.5-14.5); Segmented Neutrophils % 46.2 %; White Blood Count 4.8 K/mcL (4.3-11.1)
[2022-01-26 08:31] LABS: Alanine Aminotransferase 17 Units/L (7-52); Albumin 3.6 g/dL (3.5-5.7); Albumin/Globulin Ratio 0.9 (1.1-2.2); Alkaline Phosphatase 54 Units/L (34-104); Aspartate Amino Transferase 25 Units/L (13-39); BUN/Creatinine Ratio 15 (6-26); Blood Urea Nitrogen 13 mg/dL (8-23); Calcium 9.2 mg/dL (8.6-10.3); Carbon Dioxide 27 mEq/L (23-29); Chloride 110 mEq/L (98-107); Globulin 3.9 g/dL (2.4-3.5); Glucose 113 mg/dL (70-105); Osmolality,Calculated 293 (280-300); Potassium 4.4 mEq/L (3.5-5.1); Sodium 141 mEq/L (136-145); Total Protein 7.5 g/dL (6.4-8.9); eGFR For African Americans > 60 (> 60); eGFR For Non-African Americans > 60 (> 60)
[2022-01-26] MEDS: Insulin LISPRO 300 UNITS/3 ML VIAL SUBQ SCH ×4 (09:42→21:01)
[2022-01-26] MEDS: Cefepime HCl 1,000 MG in 0.9 % Sodium Chloride 10 ML IVP SCH ×2 (11:36→22:19)
[2022-01-26] MEDS: PYRIDOSTIGMINE 180 MG PO SCH (17:14)
[2022-01-26] MEDS: Pregabalin 75 MG CAPSULE PO SCH (17:14)
[2022-01-27 03:59] LABS: Basophils % 0.7 %; Eosinophils # 0.1 K/mcL (0.0-0.6); Eosinophils % 1.2 %; Hematocrit 36.3 % (37.5-50.1); Hemoglobin 11.5 g/dL (12.9-16.9); Immature Granulocytes % 0.2 % (0-4); Lymphocytes % 47.4 %; Mean Corpuscular HGB Conc 31.7 g/dL (31.6-35.5); Mean Corpuscular Hemoglobin 27.8 pg (28.0-33.3); Mean Corpuscular Volume 87.7 fL (83.0-100.0); Mean Platelet Volume 9.9 fL (9.4-12.4); Monocytes # 0.7 K/mcL (0.0-1.3); Monocytes % 15.5 %; Neutrophils # 1.5 K/mcL (1.6-8.9); Platelet Count 121 K/mcL (140-400); Red Blood Count 4.14 M/mcL (4.19-5.50); Red Cell Distribution Width 15.4 % (11.5-14.5); White Blood Count 4.2 K/mcL (4.3-11.1)
[2022-01-27 04:20] LABS: Alanine Aminotransferase 19 Units/L (7-52); Albumin 3.3 g/dL (3.5-5.7); Albumin/Globulin Ratio 0.9 (1.1-2.2); Alkaline Phosphatase 50 Units/L (34-104); Aspartate Amino Transferase 25 Units/L (13-39); BUN/Creatinine Ratio 16 (6-26); Bilirubin,Total 0.9 mg/dL (0.3-1.0); Blood Urea Nitrogen 14 mg/dL (8-23); Calcium 8.8 mg/dL (8.6-10.3); Carbon Dioxide 24 mEq/L (23-29); Chloride 109 mEq/L (98-107); Globulin 3.6 g/dL (2.4-3.5); Glucose 101 mg/dL (70-105); Osmolality,Calculated 291 (280-300); Potassium 3.8 mEq/L (3.5-5.1); Sodium 140 mEq/L (136-145); Total Protein 6.9 g/dL (6.4-8.9); eGFR For African Americans > 60 (> 60); eGFR For Non-African Americans > 60 (> 60)
[2022-01-27] MEDS: Insulin LISPRO 300 UNITS/3 ML VIAL SUBQ SCH ×2 (07:57→12:17)
[2022-01-27] MEDS: Famotidine 20 MG TABLET PO SCH (08:06)
[2022-01-27] MEDS: Metoprolol XL (24 HR) Succ 50 MG TAB.ER.24H PO SCH (08:06)
[2022-01-27] MEDS: Aspirin Enteric Coated 81 MG Tablet PO SCH (08:06)
[2022-01-27] MEDS: Methenamine Hippurate [Hiprex] 1 GM Tablet PO SCH (08:06)
[2022-01-27] MEDS ORDERED: Cefepime HCl 2,000 MG in 0.9 % Sodium Chloride 10 ML IVP SCH (09:00)
[2022-01-27 10:20] VITALS: BP 109/64; PULSE 76; TEMP 97.7; O2SAT 97
[2022-01-27] MEDS: 0.9 % Sodium Chloride 1,000 ML IVC SCH (12:16)
[2022-01-27] MEDS ORDERED: PYRIDOSTIGMINE 180 MG PO SCH (18:00)
== END 2022-01-27 15:51 | disposition home health service (06) | DRG 872 ==
LOC: 3ANU 18:14 → EMEROOARM 18:14 → SUATTDRO 23:34 → 3ANU 01-24 00:18
PROVIDERS: ADMIT Internal Medicine; ATTEND Internal Medicine